=== PATIENT | female | born 1940 | race Caucasian/White ===

== ENCOUNTER 2021-01-16 07:58 | Outpatient (REF) | payer MEDICARE, OTHER, SELFPAY ==
[2021-01-16 08:29] LABS: MANUAL DIFF FLAG NO
[2021-01-16 08:35] LABS: Basophils Absolute Auto 0.1 X10*3/uL (0.0-0.2); Basophils Percent Auto 0.6 % (0-2); Eosinophils Absolute Auto 0.3 X10*3/uL (0.0-0.4); Eosinophils Percent Auto 3.3 % (0-4); Hemoglobin 15.1 g/dl (12.0-16.0); Imm Gran Abs Auto 0.03 X10*3/uL (0.00-0.03); Imm Gran Pct Auto 0.4 % (0.0-0.4); Lymphocytes Absolute Auto 2.1 X10*3/uL (1.2-4.9); Lymphocytes Percent Auto 26.7 % (20-40); Mean Corpuscular HGB Conc 33.6 g/dl (31.0-35.0); Mean Corpuscular Hemoglobin 30.8 pg (27.0-33.0); Mean Corpuscular Volume 91.6 fL (80-98); Mean Platelet Volume 10.4 fL (9.4-12.3); Monocytes Absolute Auto 0.6 X10*3/uL (0.1-1.2); Monocytes Percent Auto 7.7 % (2-11); Neutrophils Absolute Auto 4.8 X10*3/uL (2.0-8.3); Neutrophils Percent Auto 61.3 % (45-73); Platelet Count 226 X10*3/uL (160-400); Red Blood Count 4.91 X10*6/uL (4.20-5.50); Red Cell Distribution Width 13.5 % (11.0-16.0); White Blood Count 7.8 X10*3/uL (4.8-10.8)
[2021-01-16 09:00] LABS: Alanine Aminotransferase 12 U/L (0-31); Albumin Level 4.2 g/dL (3.5-5.0); Alkaline Phosphatase 77 U/L (39-117); Anion Gap 12 (12-20); Aspartate Amino Transferase 13 U/L (5-31); Bilirubin Total 1.1 mg/dL (0.0-1.0); Blood Urea Nitrogen 11 mg/dL (9-16); Calcium 9.2 mg/dL (8.4-10.2); Carbon Dioxide 27 mmol/L (22-29); Chloride 109 mmol/L (96-108); Cholesterol 277 mg/dL; Estimated Glomerular Filt Rate > 60; Glucose Fasting 116 mg/dL (60-99); HDL Cholesterol 46 mg/dL; LDL Cholesterol Calculated 192 mg/dl; Sodium 143 mmol/L (135-145); Total Protein 6.6 g/dL (6.5-8.0); Triglycerides 199 mg/dL
== END 2021-01-16 07:59 | disposition home or self-care (01) ==
LOC: HO.LAB 07:58
PROVIDERS: PCP Internal Medicine Medical Oncology; Visit Provider Internal Medicine Medical Oncology
DX: E66.3 Overweight (principal); E78.5 Hyperlipidemia, unspecified
CPT/HCPCS: 36415; 80053; 80061; 85025

== ENCOUNTER 2021-04-25 11:04 | Outpatient (REF) | payer MEDICARE, OTHER, SELFPAY ==
[2021-04-25 11:15] LABS: MANUAL DIFF FLAG NO
[2021-04-25 11:44] LABS: Basophils Percent Auto 0.5 % (0-2); Eosinophils Absolute Auto 0.2 X10*3/uL (0.0-0.4); Eosinophils Percent Auto 2.8 % (0-4); Hematocrit 46.6 % (37.0-47.0); Hemoglobin 15.6 g/dl (12.0-16.0); Imm Gran Abs Auto 0.03 X10*3/uL (0.00-0.03); Imm Gran Pct Auto 0.4 % (0.0-0.4); Lymphocytes Absolute Auto 1.4 X10*3/uL (1.2-4.9); Lymphocytes Percent Auto 17.7 % (20-40); Mean Corpuscular HGB Conc 33.5 g/dl (31.0-35.0); Mean Corpuscular Hemoglobin 30.6 pg (27.0-33.0); Mean Corpuscular Volume 91.6 fL (80.0-98.0); Mean Platelet Volume 10.8 fL (9.4-12.3); Monocytes Absolute Auto 0.6 X10*3/uL (0.1-1.2); Monocytes Percent Auto 7.4 % (2-11); Neutrophils Absolute Auto 5.55 x10*3/uL (2.0-8.3); Neutrophils Percent Auto 71.2 % (45-73); Platelet Count 270 X10*3/uL (160-400); Red Blood Count 5.09 X10*6/uL (4.20-5.50); Red Cell Distribution Width 13.2 % (11.0-16.0); White Blood Count 7.8 X10*3/uL (4.8-10.8)
[2021-04-25 12:16] LABS: Alanine Aminotransferase 14 U/L (0-31); Albumin Level 4.4 g/dL (3.5-5.0); Alkaline Phosphatase 92 U/L (39-117); Anion Gap 13 (12-20); Aspartate Amino Transferase 16 U/L (5-31); Bilirubin Total 1.7 mg/dL (0.0-1.0); Blood Urea Nitrogen 13 mg/dL (9-16); Calcium 9.5 mg/dL (8.4-10.2); Carbon Dioxide 27 mmol/L (22-29); Chloride 107 mmol/L (96-108); Cholesterol 250 mg/dL; Estimated Glomerular Filt Rate 55; Glucose Fasting 113 mg/dL (60-99); HDL Cholesterol 42 mg/dL; LDL Cholesterol Calculated 179 mg/dl; Potassium 4.9 mmol/L (3.3-5.1); Sodium 142 mmol/L (135-145); Total Protein 6.8 g/dL (6.5-8.0); Triglycerides 149 mg/dL
== END 2021-04-25 11:05 | disposition home or self-care (01) ==
LOC: HO.LAB 11:04
PROVIDERS: PCP Internal Medicine Medical Oncology; Visit Provider Internal Medicine Medical Oncology
DX: E78.5 Hyperlipidemia, unspecified (principal); E66.9 Obesity, unspecified; I10 Essential (primary) hypertension
CPT/HCPCS: 36415; 80053; 80061; 85025

== ENCOUNTER 2021-09-30 08:59 | Outpatient (REF) | payer MEDICARE, OTHER, SELFPAY ==
[2021-09-30 10:27] LABS: Alanine Aminotransferase 15 U/L (0-31); Albumin Level 4.1 g/dL (3.5-5.0); Alkaline Phosphatase 85 U/L (39-117); Anion Gap 12 (12-20); Aspartate Amino Transferase 15 U/L (5-31); Bilirubin Total 1.1 mg/dL (0.0-1.0); Blood Urea Nitrogen 10 mg/dL (9-16); Calcium 9.2 mg/dL (8.4-10.2); Carbon Dioxide 27 mmol/L (22-29); Chloride 108 mmol/L (96-108); Cholesterol 257 mg/dL; Estimated Glomerular Filt Rate > 60; Glucose Fasting 103 mg/dL (60-99); HDL Cholesterol 41 mg/dL; LDL Cholesterol Calculated 177 mg/dl; Potassium 4.4 mmol/L (3.3-5.1); Sodium 143 mmol/L (135-145); Total Protein 6.5 g/dL (6.5-8.0); Triglycerides 196 mg/dL
== END 2021-09-30 09:00 | disposition home or self-care (01) ==
LOC: HO.LAB 08:59
PROVIDERS: PCP Internal Medicine Medical Oncology; Visit Provider Internal Medicine Medical Oncology
DX: E78.5 Hyperlipidemia, unspecified (principal)
CPT/HCPCS: 36415; 80053; 80061

== ENCOUNTER 2022-03-26 10:21 | Outpatient (REF) | payer MEDICARE, OTHER, SELFPAY ==
[2022-03-26 11:00] LABS: MANUAL DIFF FLAG NO
[2022-03-26 11:43] LABS: Basophils Percent Auto 0.6 % (0-2); Eosinophils Absolute Auto 0.2 X10*3/uL (0.0-0.4); Eosinophils Percent Auto 2.5 % (0-4); Hematocrit 46.8 % (37.0-47.0); Hemoglobin 15.6 g/dl (12.0-16.0); Imm Gran Abs Auto 0.03 X10*3/uL (0.00-0.03); Imm Gran Pct Auto 0.4 % (0.0-0.4); Lymphocytes Absolute Auto 1.4 X10*3/uL (1.2-4.9); Lymphocytes Percent Auto 20.8 % (20-40); Mean Corpuscular HGB Conc 33.3 g/dl (31.0-35.0); Mean Corpuscular Hemoglobin 30.7 pg (27.0-33.0); Mean Corpuscular Volume 92.1 fL (80.0-98.0); Mean Platelet Volume 10.6 fL (9.4-12.3); Monocytes Absolute Auto 0.5 X10*3/uL (0.1-1.2); Monocytes Percent Auto 7.5 % (2-11); Neutrophils Absolute Auto 4.5 x10*3/uL (2.0-8.3); Neutrophils Percent Auto 68.2 % (45-73); Platelet Count 251 X10*3/uL (160-400); Red Blood Count 5.08 X10*6/uL (4.20-5.50); Red Cell Distribution Width 13.4 % (11.0-16.0); White Blood Count 6.7 X10*3/uL (4.8-10.8)
[2022-03-26 12:15] LABS: Alanine Aminotransferase 13 U/L (0-31); Albumin Level 4.4 g/dL (3.5-5.0); Alkaline Phosphatase 84 U/L (39-117); Anion Gap 14 (12-20); Aspartate Amino Transferase 15 U/L (5-31); Bilirubin Total 1.3 mg/dL (0.0-1.0); Blood Urea Nitrogen 12 mg/dL (9-16); Calcium 9.8 mg/dL (8.4-10.2); Carbon Dioxide 27 mmol/L (22-29); Chloride 105 mmol/L (96-108); Cholesterol 280 mg/dL; Estimated Glomerular Filt Rate > 60; Glucose Fasting 102 mg/dL (60-99); HDL Cholesterol 47 mg/dL; LDL Cholesterol Calculated 200 mg/dl; Potassium 4.7 mmol/L (3.3-5.1); Sodium 141 mmol/L (135-145); Total Protein 6.8 g/dL (6.5-8.0); Triglycerides 166 mg/dL
== END 2022-03-26 10:22 | disposition home or self-care (01) ==
LOC: HO.LAB 10:21
PROVIDERS: PCP Internal Medicine Medical Oncology; Visit Provider Internal Medicine Medical Oncology
DX: E78.5 Hyperlipidemia, unspecified (principal); E66.3 Overweight
CPT/HCPCS: 36415; 80053; 80061; 85025

== ENCOUNTER 2022-04-25 10:15 | Outpatient (REF) | payer MEDICARE, OTHER, SELFPAY ==
[2022-04-25 11:17] LABS: Alanine Aminotransferase 12 U/L (0-31); Albumin Level 4.2 g/dL (3.5-5.0); Alkaline Phosphatase 93 U/L (39-117); Anion Gap 13 (12-20); Aspartate Amino Transferase 16 U/L (5-31); Bilirubin Total 1.5 mg/dL (0.0-1.0); Blood Urea Nitrogen 10 mg/dL (9-16); Calcium 9.3 mg/dL (8.4-10.2); Carbon Dioxide 28 mmol/L (22-29); Chloride 107 mmol/L (96-108); Cholesterol 255 mg/dL; Estimated Glomerular Filt Rate > 60; Glucose Fasting 105 mg/dL (60-99); HDL Cholesterol 44 mg/dL; LDL Cholesterol Calculated 181 mg/dl; Potassium 4.5 mmol/L (3.3-5.1); Sodium 143 mmol/L (135-145); Total Protein 6.6 g/dL (6.5-8.0); Triglycerides 153 mg/dL
== END 2022-04-25 10:16 | disposition home or self-care (01) ==
LOC: HO.LAB 10:15
PROVIDERS: PCP Internal Medicine Medical Oncology; Visit Provider Internal Medicine Medical Oncology
DX: E78.5 Hyperlipidemia, unspecified (principal); E66.3 Overweight
CPT/HCPCS: 36415; 80053; 80061

== ENCOUNTER 2022-09-24 08:22 | Outpatient (REF) | payer MEDICARE, OTHER, SELFPAY ==
[2022-09-24 08:39] LABS: MANUAL DIFF FLAG NO
[2022-09-24 09:04] LABS: Basophils Percent Auto 0.6 % (0-2); Eosinophils Absolute Auto 0.2 X10*3/uL (0.0-0.4); Hematocrit 44.8 % (37.0-47.0); Hemoglobin 15.1 g/dl (12.0-16.0); Imm Gran Abs Auto 0.01 X10*3/uL (0.00-0.03); Imm Gran Pct Auto 0.2 % (0.0-0.4); Lymphocytes Absolute Auto 1.4 X10*3/uL (1.2-4.9); Lymphocytes Percent Auto 25.3 % (20-40); Mean Corpuscular HGB Conc 33.7 g/dl (31.0-35.0); Mean Corpuscular Hemoglobin 30.3 pg (27.0-33.0); Mean Corpuscular Volume 89.8 fL (80.0-98.0); Mean Platelet Volume 10.4 fL (9.4-12.3); Monocytes Absolute Auto 0.4 X10*3/uL (0.1-1.2); Monocytes Percent Auto 6.9 % (2-11); Neutrophils Absolute Auto 3.4 x10*3/uL (2.0-8.3); Platelet Count 218 X10*3/uL (160-400); Red Blood Count 4.99 X10*6/uL (4.20-5.50); Red Cell Distribution Width 12.7 % (11.0-16.0); White Blood Count 5.3 X10*3/uL (4.8-10.8)
[2022-09-24 09:59] LABS: Alanine Aminotransferase 11 U/L (0-31); Albumin Level 3.9 g/dL (3.5-5.0); Alkaline Phosphatase 80 U/L (39-117); Anion Gap 11 (12-20); Aspartate Amino Transferase 14 U/L (5-31); Bilirubin Total 1.4 mg/dL (0.0-1.0); Blood Urea Nitrogen 10 mg/dL (9-16); Calcium 9.1 mg/dL (8.4-10.2); Carbon Dioxide 27 mmol/L (22-29); Chloride 111 mmol/L (96-108); Cholesterol 263 mg/dL; Estimated Glomerular Filt Rate > 60; Glucose Fasting 109 mg/dL (60-99); HDL Cholesterol 43 mg/dL; LDL Cholesterol Calculated 192 mg/dl; Potassium 4.9 mmol/L (3.3-5.1); Sodium 144 mmol/L (135-145); Total Protein 6.1 g/dL (6.5-8.0); Triglycerides 144 mg/dL
[2022-09-24 10:04] LABS: Vitamin D 25-OH Total 6.8 ng/mL (>30)
== END 2022-09-24 08:23 | disposition home or self-care (01) ==
LOC: HO.LAB 08:22
PROVIDERS: PCP Internal Medicine Medical Oncology; Visit Provider Internal Medicine Medical Oncology
DX: E78.5 Hyperlipidemia, unspecified (principal); E66.3 Overweight; E55.9 Vitamin D deficiency, unspecified
CPT/HCPCS: 36415; 80053; 80061; 82306; 85025

== ENCOUNTER 2022-12-24 09:08 | Outpatient (REF) | payer MEDICARE, OTHER, SELFPAY | END 2022-12-24 09:09 | disposition home or self-care (01) | LOC: HO.LAB 09:08 | PROVIDERS: PCP Internal Medicine Medical Oncology; Visit Provider Internal Medicine Medical Oncology | DX: E78.5 Hyperlipidemia, unspecified (principal); E66.3 Overweight; E55.9 Vitamin D deficiency, unspecified; I10 Essential (primary) hypertension | CPT/HCPCS: 36415; 80053; 80061; 82306; 85025 ==

== ENCOUNTER 2023-01-30 08:38 | Outpatient (REF) | payer MEDICARE, OTHER, SELFPAY ==
[2023-01-30 10:31] LABS: Appearance Urine Cloudy; Color Urine Yellow; Glucose Urine UA Negative (Negative); Leukocyte Esterase Urine Small (1+) (Negative); Nitrite Urine Negative (Negative); PH 6.5 (5.0-9.0); Specific Gravity - Urine 1.015 (1.005-1.025); UMIC TRIGGER UA YES; Urine Blood Negative (Negative); Urine Ketones Negative (Negative); Urine Protein Negative (Neg-Trace)
[2023-01-30 10:34] LABS: Bacteria Urine 1+ (None Seen); Hyaline Casts Urine 0-2 /LPF (0-2); RBC Urine 0-2 /HPF (0-2); Squamous Epithelial Cell Urine >20 /HPF (0-2)
== END 2023-01-30 08:39 | disposition home or self-care (01) ==
LOC: HO.LAB 08:38
PROVIDERS: PCP Internal Medicine Medical Oncology; Visit Provider Internal Medicine Medical Oncology
DX: R82.998 Other abnormal findings in urine (principal)
CPT/HCPCS: 81001; 87086

== ENCOUNTER 2023-06-26 09:49 | Outpatient (REF) | payer MEDICARE, OTHER, SELFPAY | END 2023-06-26 09:50 | disposition home or self-care (01) | LOC: HO.LAB 09:49 | PROVIDERS: PCP Internal Medicine Medical Oncology; Visit Provider Internal Medicine Medical Oncology | DX: Z00.00 Encounter for general adult medical examination without abnormal findings (principal); E78.5 Hyperlipidemia, unspecified; I10 Essential (primary) hypertension; E66.3 Overweight; E55.9 Vitamin D deficiency, unspecified | CPT/HCPCS: 36415; 80053; 80061; 82306; 85025 ==

== ENCOUNTER 2023-09-14 15:23 | Emergency (ER) | payer MEDICARE, OTHER, SELFPAY ==
[2023-09-14] VITALS (8 sets, daily range): BP systolic 132–172; BP diastolic 74–105; PULSE 52–91; RESP 16–18; TEMP 36.6–37; O2SAT 95–99; BMI 25.8
--- NOTE | ~2023-09-14 | CT_ITS ---
EXAMINATION: CT HEAD WITHOUT CONTRAST CLINICAL INFORMATION: Dizziness COMPARISON: None available. TECHNIQUE: Contiguous axial imaging was performed from the skull base to vertex without intravenous administration of contrast. This CT examination was performed using dose optimization techniques as appropriate, variously including the following: *Automated exposure control *Adjustment of mA and/or kV according to patient size (this includes techniques or standardized protocols for targeted exams where dose is matched to indication/reason for exam; i.e. extremities or head) *Use of iterative reconstruction technique DLP: 629 mGy-cm FINDINGS: There is no acute intra-axial, extra-axial bleed, masses or midline shift. There is no acute infarction in evolution. There is no edema. The lateral ventricles are symmetrical in size and configuration without enlargement. Bone windows reveal no calvarial abnormality. Bilateral paranasal sinuses and mastoid air cells are well-aerated. There is no scalp soft tissue abnormality. CT/CT head/brain wo IV con IMPRESSION: No acute intracranial process seen.
--- NOTE | 2023-09-14 15:33 | ECG_ITS ---
Test Reason : DIZZINESS Blood Pressure : / mmHG Vent. Rate : 063 BPM Atrial Rate : 063 BPM P-R Int : 156 ms QRS Dur : 082 ms QT Int : 484 ms P-R-T Axes : 043 -16 029 degrees QTc Int : 495 ms Normal sinus rhythm Minimal voltage criteria for LVH, may be normal variant ( R in aVL ) Prolonged QT Abnormal ECG No previous ECGs available Referred By: Silvina Alves Electronically Signed By:AUDRA APARICIO
[2023-09-14 16:19] LABS: MANUAL DIFF FLAG NO
[2023-09-14 16:21] LABS: Basophils Percent Auto 0.4 % (0-2); Eosinophils Percent Auto 0.4 % (0-4); Hematocrit 44.2 % (37.0-47.0); Hemoglobin 15.4 g/dl (12.0-16.0); Imm Gran Abs Auto 0.02 X10*3/uL (0.00-0.03); Imm Gran Pct Auto 0.3 % (0.0-0.4); Lymphocytes Absolute Auto 0.8 X10*3/uL (1.2-4.9); Lymphocytes Percent Auto 9.6 % (20-40); Mean Corpuscular HGB Conc 34.8 g/dl (31.0-35.0); Mean Corpuscular Volume 86.2 fL (80.0-98.0); Mean Platelet Volume 10.1 fL (9.4-12.3); Monocytes Absolute Auto 0.3 X10*3/uL (0.1-1.2); Monocytes Percent Auto 3.6 % (2-11); Neutrophils Absolute Auto 6.7 x10*3/uL (2.0-8.3); Neutrophils Percent Auto 85.7 % (45-73); Platelet Count 206 X10*3/uL (160-400); Red Blood Count 5.13 X10*6/uL (4.20-5.50); Red Cell Distribution Width 12.7 % (11.0-16.0); White Blood Count 7.8 X10*3/uL (4.8-10.8)
[2023-09-14 16:27] LABS: Prothrombin Time 11.9 SEC (11.1-13.3)
[2023-09-14 16:29] LABS: Partial Thromboplastin Time 32.8 SEC (26.0-36.8)
[2023-09-14 16:34] LABS: Alanine Aminotransferase 10 U/L (0-31); Albumin Level 3.9 g/dL (3.5-5.0); Alkaline Phosphatase 88 U/L (39-117); Anion Gap 16 (12-20); Aspartate Amino Transferase 14 U/L (5-31); Bilirubin Total 1.3 mg/dL (0.0-1.0); Blood Urea Nitrogen 10 mg/dL (9-16); Calcium 9.1 mg/dL (8.4-10.2); Carbon Dioxide 21 mmol/L (22-29); Chloride 108 mmol/L (96-108); Creatinine Clr Calc Pharmacy 55.9; Estimated Glomerular Filt Rate > 60; Glucose Random 155 mg/dL (60-115); Magnesium 1.9 mg/dL (1.6-2.6); Potassium 3.9 mmol/L (3.3-5.1); Sodium 141 mmol/L (135-145); Total Protein 6.6 g/dL (6.5-8.0)
[2023-09-14 16:42] LABS: Troponin-I High Sensitivity < 2.7 ng/L (<3.5-17.0)
--- NOTE | 2023-09-14 16:53 | ED.GENADULT ---
HPI - General Adult General Chief complaint: Nausea/Vomiting/Diarrhea Stated complaint: vomiting, weakness Time Seen by Provider: 09/14/23 16:03 Source: patient and RN notes reviewed Mode of arrival: ambulatory Limitations: no limitations History of Present Illness [facility] narrative: This is a 83-year-old female, with no known medical problems, presenting to the emergency department with complaints of acute onset dizziness which started at 6:00 a.m. this morning. Patient states that she woke up this morning and felt like she was dizzy and went to the bathroom return back to bed. She states that she still has profound dizziness especially when she is moving around. She states that she was unable to ambulate today secondary to the dizziness she was experiencing. She reports a slight headache, nausea and vomiting. She states that over the last 2 days she felt as though she did not want to leave her house, however states that she was in her usual state of health. No recent fevers, chills, chest pain, shortness of breath, palpitations, abdominal pain, nausea, vomiting or diarrhea. She denies history of similar symptoms in the past. Denies any other complaints or concerns at this time. MD complaint: Dizziness Onset (ago): hour(s) Radiation: non-radiation Relieving factors: none Exacerbating factors: none Associated symptoms: denies other symptoms Treatments prior to arrival: none Related Data Allergies Allergy/AdvReac Type Severity Reaction Status Date / Time No Known Allergies Allergy Unverified 03/10/20 17:14 Review of Systems Review of Systems: Yes all other systems are reviewed and are negative Constitutional: Constitutional: Reports as per [facility] Past Medical History Attestation statement: The following information was validated with the patient. Social History Social History Alcohol intake: former Smoked in Last 30 Days: No Use of substances other than those prescribed or required for medical reasons: No Advance Directives: No Advance Directives Information Provided: No Physical Exam ED Vital Signs: Vital Signs - 24 hr 09/14/23 17:32 09/14/23 17:35 09/14/23 17:37 Temperature 98.6 F Pulse Rate 52 56 55 Respiratory Rate 18 Blood Pressure 155/74 H 150/78 H 147/77 H Pulse Oximetry 99 Oxygen Delivery Method Room Air 09/14/23 17:39 09/14/23 18:04 09/14/23 22:59 Temperature 98 F Pulse Rate 63 56 91 Respiratory Rate 18 16 Blood Pressure 159/88 H 159/88 H 172/105 H Pulse Oximetry 97 95 Oxygen Delivery Method Room Air Room Air 09/14/23 23:07 Temperature 98.0 F Pulse Rate 91 Respiratory Rate 16 Blood Pressure 172/105 H Pulse Oximetry 95 Oxygen Delivery Method Room Air BMI result Body Mass Index 25.8 Const General: cooperative, comfortable and no acute distress Orientation/consciousness: patient oriented x3 Limitations: no limitations HENMT Head: Yes normal to inspection, Yes normocephalic and Yes atraumatic Ears: hearing grossly normal bilaterally General nose exam: Normal external nose present Face and sinus: Yes normal facial exam Mouth: Normal oral and palatal mucosa present, oropharynx normal and moist mucous membranes Throat: Yes posterior oropharynx normal Eyes General: appearance normal, both eyes and all related structures Eyelids: Yes eyelids normal Conjunctivae: conjunctivae normal Sclerae: sclerae normal Pupils: Equal, round and reactive pupils present EOM: EOMs intact bilaterally Neck Neck: Yes normal visual inspection, Yes full ROM and Yes no lymphadenopathy Lymphatic: no lymphadenopathy noted Chest Chest palpation & inspection: normal inspection of the chest Resp Effort & Inspection: normal respiratory effort and able to speak in complete sentences Auscultation: clear to auscultation bilaterally, no crackles, no rales, no rhonchi and no wheezes Cardio Rate: regular rate Rhythm: regular rhythm Heart sounds: S1 normal heart sound present and S2 normal heart sound present GI Other: Abdomen is soft, nontender, nondistended Inspection: Yes normal to inspection Skin General skin exam: no rashes or lesions noted Trauma: no lacerations or abrasions Wounds: no wounds Neuro Other: Unable to perform pronator drift as every time she closes her eyes dizziness worsens. General: patient oriented x3 and moves all extremities Cranial nerves: Yes CN's II-XII intact bilaterally and Yes Equal, round and reactive pupils present Cognition (Neuro): normal cognition Gait exam (Neuro): Normal gait present Motor exam (neuro): 5/5 motor strength present throughout Extrem General: Yes normal to inspection Right upper extremity: normal to inspection Left upper extremity: normal to inspection Right lower extremity: normal to inspection Left lower extremity: normal to inspection NIH Stroke Scale Internal: Initial- Upon Arrival Level of Consciousness: Alert Level of Consciousness Questions: Answers both questions correctly Level of Consciousness Commands: Performs both tasks correctly Best Gaze: Normal Visual: No visual loss Facial Palsy: Normal Motor Arm (Right): No drift Motor Arm (Left): No drift Motor Leg (Right): No drift Motor Leg (Left): No drift Limb Ataxia: Absent Sensory: Normal Best Language: No aphasia Dysarthia: Normal Extinction and Inattention: No abnormality Score: 0 Course Reevaluation(s) Reevaluation #1: Patient is not orthostatic. CT head unremarkable. Discussed case with Dr. Hunter. Given symptomatic, will medicate with IV fluids, p.o. valiumand meclizine. Time: 17:55 Reevaluation #2: Patient re-evaluated after receiving IV fluids and medications. She was able to walk to the bathroom without difficulty. She is feeling better, will attempt to ambulate around the emergency room to ensure that her symptoms have resolved. Time: 21:09 Reevaluation #3: Patient has walked around the emergency room multiple times, without any return of dizziness. She is feeling much better and stable for discharge. Given strict return precautions. She understands and agrees with plan. Patient stable for discharge. Time: 22:44 Medications Administered Discontinued Medications Generic Name Dose Route Start Last Admin Trade Name Freq PRN Reason Stop Dose Admin Diazepam 1 mg 09/14/23 17:52 09/14/23 18:05 Diazepam 2 Mg Tablet PO 09/14/23 17:53 1 mg ONCE ONE Administration Sodium Chloride 1,000 mls @ 999 mls/hr 09/14/23 17:50 09/14/23 18:08 Ns IV 09/14/23 18:50 999 mls/hr .Q1H1M ONE Administration Meclizine HCl 50 mg 09/14/23 17:54 09/14/23 18:05 Meclizine Hcl 25 Mg Tablet PO 09/14/23 17:55 50 mg ONCE ONE Administration Medical Decision Making Medical Decision Making MDM Narrative: This is a 83-year-old female, with no known medical problems, presenting to the emergency department with complaints of dizziness which started this morning. On arrival, patient alert and oriented x4. She is neurologically intact however unable to perform pronator drift given keeping her eyes closed causes her to have worsening dizziness, no other neurologic focal deficits seen on examination. Denies any recent head trauma or head strike. She has not on blood thinners. Plan: Labs, EKG, viral swabs, CT head, orthostatics Differential Diagnosis Differential Diagnoses: The differential diagnosis associated with the presentation includes Orthostatic hypotension, ICH, subdural hematoma, CVA, electrolyte abnormality, ACS, arrhythmia Admission/Observation Consideration of admission/observation: Escalation of care including admission/observation considered Patient would have been admitted to the hospital had her work up had any findings where hospital admission was appropriate and her clinical presentation warranted hospital admission. Lab Data MDM Lab Attestation statement: I reviewed the patient's lab results. No leukocytosis, stable H&H, chemistry within normal limits. 09/14/23 16:15 09/14/23 16:15 Labs: Lab Results 09/14/23 09/14/23 Range/Units 16:14 16:15 WBC 7.8 (4.8-10.8) X10*3/uL RBC 5.13 (4.20-5.50) X10*6/uL Hgb 15.4 (12.0-16.0) g/dl Hct 44.2 (37.0-47.0) % MCV 86.2 (80.0-98.0) fL MCH 30.0 (27.0-33.0) pg MCHC 34.8 (31.0-35.0) g/dl RDW 12.7 (11.0-16.0) % Plt Count 206 (160-400) X10*3/uL MPV 10.1 (9.4-12.3) fL Immature Gran % (Auto) 0.3 (0.0-0.4) % Neut % (Auto) 85.7 H (45-73) % Lymph % (Auto) 9.6 L (20-40) % Hartley % (Auto) 3.6 (2-11) % Eos % (Auto) 0.4 (0-4) % Baso % (Auto) 0.4 (0-2) % Lymph # (Auto) 0.8 L (1.2-4.9) X10*3/uL Hartley # (Auto) 0.3 (0.1-1.2) X10*3/uL Eos # (Auto) 0.0 (0.0-0.4) X10*3/uL Baso # (Auto) 0.0 (0.0-0.2) X10*3/uL Abs Immat Gran (auto) 0.02 (0.00-0.03) X10*3/uL Absolute Neuts (auto) 6.7 (2.0-8.3) x10*3/uL Absolute Nucleated RBC 0.000 (0.0-0.012) X10*3/uL Nucleated RBC % (auto) 0.0 (0.0-0.2) /100WBC PT 11.9 (11.1-13.3) SEC INR 1.0 (0.9-1.1) APTT 32.8 (26.0-36.8) SEC Sodium 141 (135-145) mmol/L Potassium 3.9 (3.3-5.1) mmol/L Chloride 108 (96-108) mmol/L Carbon Dioxide 21 L (22-29) mmol/L Anion Gap 16 (12-20) BUN 10 (9-16) mg/dL Creatinine 0.79 (0.5-1.4) mg/dL Estim Creat Clear Calc 55.9 Estimated GFR > 60 Random Glucose 155 H (60-115) mg/dL Calcium 9.1 (8.4-10.2) mg/dL Magnesium 1.9 (1.6-2.6) mg/dL Total Bilirubin 1.3 H (0.0-1.0) mg/dL AST 14 (5-31) U/L ALT 10 (0-31) U/L Alkaline Phosphatase 88 (39-117) U/L Troponin I High Sens < 2.7 (<3.5-17.0) ng/L Total Protein 6.6 (6.5-8.0) g/dL Albumin 3.9 (3.5-5.0) g/dL Influenza Type A (PCR) NEGATIVE (Negative) Influenza Type B (PCR) NEGATIVE (Negative) RSV RNA Qual (PCR) NEGATIVE (Negative) SARS-CoV-2 RNA (RT-PCR) NEGATIVE (Negative) Independent Interpretation I performed an independent interpretation of an: EKG Interpretation: EKG normal sinus rhythm at a ventricular rate of 63 beats per minute, prolonged QT at 484, QTC 495, no ST elevation or depression. Radiology Impression Discussion of test interpretation with radiology: I have reviewed the radiologist's reading. Radiologist Impression: EXAMINATION: CT HEAD WITHOUT CONTRAST CLINICAL INFORMATION: Dizziness COMPARISON: None available. TECHNIQUE: Contiguous axial imaging was performed from the skull base to vertex without intravenous administration of contrast. This CT examination was performed using dose optimization techniques as appropriate, variously including the following: *Automated exposure control *Adjustment of mA and/or kV according to patient size (this includes techniques or standardized protocols for targeted exams where dose is matched to indication/reason for exam; i.e. extremities or head) *Use of iterative reconstruction technique DLP: 629 mGy-cm FINDINGS: There is no acute intra-axial, extra-axial bleed, masses or midline shift. There is no acute infarction in evolution. There is no edema. The lateral ventricles are symmetrical in size and configuration without enlargement. Bone windows reveal no calvarial abnormality. Bilateral paranasal sinuses and mastoid air cells are well-aerated. There is no scalp soft tissue abnormality. CT/CT head/brain wo IV con IMPRESSION: No acute intracranial process seen. Dictated By: Robert Griffiths MD Discharge Plan Discharge Clinical Impression: Vertigo, Dizziness Patient Disposition: Home, Self-Care Instructions: Vertigo (ED), Dizziness (ED) Additional Instructions: You were seen in the emergency department due to dizziness. Your CT of your head does not show any abnormalities. Your blood work was reassuring. It is unclear what is causing you to feel dizzy however, we gave you multiple medications including IV fluids, and your symptoms had resolved. Please follow-up with your primary care physician regarding this visit. If any new or worsening symptoms occur including but not limited to chest pain, shortness of breath, worsening dizziness, headaches, blurred vision, please return for re-evaluation. Interventions: ED Discharge Assessment Last Done: 09/14/23 23:07 Discharge Date/Time: 09/14/23 23:08
[2023-09-14 16:59] LABS: Influenza A PCR NEGATIVE (Negative); Influenza B PCR NEGATIVE (Negative); Resp Syncy Virus RNA Qual PCR NEGATIVE (Negative); SARS COV2 PCR INHOUSE NEGATIVE (Negative)
[2023-09-14] MEDS: Meclizine HCl 25 MG TABLET 50 MG PO (18:05)
[2023-09-14] MEDS: diazePAM 2 MG TABLET 1 MG PO (18:05)
[2023-09-14] MEDS: 0.9 % Sodium Chloride 1,000 ML 999 ML IV (18:08)
--- NOTE | 2023-09-14 23:05 | PC.NURSE ---
pt ambulatory at discharge pt son arrived for transport home. pt provided with discharge packet nahun morris made aware of pts bp of 172/105 pt denies cp, sob per alexandra pt safe for discharge
== END 2023-09-14 23:08 | disposition home or self-care (01) ==
PROVIDERS: Physician Assistant Medical; Emergency Provider Emergency Medicine; PCP Internal Medicine Medical Oncology
DX: R11.2 Nausea with vomiting, unspecified (principal); R42 Dizziness and giddiness; R26.2 Difficulty in walking, not elsewhere classified; R51.9 Headache, unspecified; R94.31 Abnormal electrocardiogram [ECG] [EKG]; Z11.52 Encounter for screening for COVID-19; Z20.822 Contact with and (suspected) exposure to COVID-19; Z79.899 Other long term (current) drug therapy
CPT/HCPCS: 0241U; 70450; 80053; 83735; 84484; 85025; 85610; 85730; 93005; 99284; 99285

== ENCOUNTER → 2023-09-14 15:33 | Outpatient (BNV) | payer MEDICARE, OTHER, SELFPAY | PROVIDERS: Emergency Provider Emergency Medicine; Visit Provider Internal Medicine | DX: I45.81 Long QT syndrome (principal) | CPT/HCPCS: 93010 ==

== ENCOUNTER 2023-11-07 10:27 | Outpatient (REF) | payer MEDICARE, OTHER, SELFPAY ==
[2023-11-07 10:38] LABS: MANUAL DIFF FLAG NO
[2023-11-07 10:50] LABS: Basophils Absolute Auto 0.1 X10*3/uL (0.0-0.2); Basophils Percent Auto 0.7 % (0-2); Eosinophils Absolute Auto 0.2 X10*3/uL (0.0-0.4); Eosinophils Percent Auto 1.8 % (0-4); Hematocrit 43.4 % (37.0-47.0); Hemoglobin 14.5 g/dl (12.0-16.0); Imm Gran Abs Auto 0.04 X10*3/uL (0.00-0.03); Imm Gran Pct Auto 0.5 % (0.0-0.4); Lymphocytes Absolute Auto 1.9 X10*3/uL (1.2-4.9); Lymphocytes Percent Auto 22.9 % (20-40); Mean Corpuscular HGB Conc 33.4 g/dl (31.0-35.0); Mean Corpuscular Hemoglobin 29.9 pg (27.0-33.0); Mean Corpuscular Volume 89.5 fL (80.0-98.0); Mean Platelet Volume 9.9 fL (9.4-12.3); Monocytes Absolute Auto 0.6 X10*3/uL (0.1-1.2); Monocytes Percent Auto 6.8 % (2-11); Neutrophils Absolute Auto 5.6 x10*3/uL (2.0-8.3); Neutrophils Percent Auto 67.3 % (45-73); Platelet Count 313 X10*3/uL (160-400); Red Blood Count 4.85 X10*6/uL (4.20-5.50); Red Cell Distribution Width 13.1 % (11.0-16.0); White Blood Count 8.3 X10*3/uL (4.8-10.8)
[2023-11-07 11:18] LABS: Alanine Aminotransferase 9 U/L (0-31); Alkaline Phosphatase 88 U/L (39-117); Anion Gap 10 (12-20); Aspartate Amino Transferase 12 U/L (5-31); Bilirubin Total 1.2 mg/dL (0.0-1.0); Blood Urea Nitrogen 8 mg/dL (9-16); Calcium 9.3 mg/dL (8.4-10.2); Carbon Dioxide 30 mmol/L (22-29); Chloride 107 mmol/L (96-108); Cholesterol 246 mg/dL (<200); Estimated Glomerular Filt Rate 60; Glucose Fasting 112 mg/dL (60-99); HDL Cholesterol 43 mg/dL (>40); LDL Cholesterol Calculated 166 mg/dL (<100); Potassium 4.2 mmol/L (3.3-5.1); Sodium 143 mmol/L (135-145); Triglycerides 186 mg/dL (<150)
== END 2023-11-07 10:28 | disposition home or self-care (01) ==
LOC: HO.LAB 10:27
PROVIDERS: PCP Internal Medicine Medical Oncology; Visit Provider Internal Medicine Medical Oncology
DX: E78.5 Hyperlipidemia, unspecified (principal); E66.3 Overweight
CPT/HCPCS: 36415; 80053; 80061; 85025

== ENCOUNTER 2024-04-25 09:28 | Outpatient (REF) | payer MEDICARE, OTHER, SELFPAY ==
[2024-04-25 09:40] LABS: MANUAL DIFF FLAG NO
[2024-04-25 10:02] LABS: Basophils Percent Auto 0.6 % (0-2); Eosinophils Absolute Auto 0.2 X10*3/uL (0.0-0.4); Eosinophils Percent Auto 2.6 % (0-4); Hematocrit 43.8 % (37.0-47.0); Imm Gran Abs Auto 0.03 X10*3/uL (0.00-0.03); Imm Gran Pct Auto 0.4 % (0.0-0.4); Lymphocytes Absolute Auto 1.5 X10*3/uL (1.2-4.9); Lymphocytes Percent Auto 22.2 % (20-40); Mean Corpuscular HGB Conc 34.2 g/dl (31.0-35.0); Mean Corpuscular Hemoglobin 31.4 pg (27.0-33.0); Mean Corpuscular Volume 91.8 fL (80.0-98.0); Mean Platelet Volume 10.8 fL (9.4-12.3); Monocytes Absolute Auto 0.5 X10*3/uL (0.1-1.2); Neutrophils Absolute Auto 4.6 x10*3/uL (2.0-8.3); Neutrophils Percent Auto 67.2 % (45-73); Platelet Count 221 X10*3/uL (160-400); Red Blood Count 4.77 X10*6/uL (4.20-5.50); Red Cell Distribution Width 13.3 % (11.0-16.0); White Blood Count 6.8 X10*3/uL (4.8-10.8)
[2024-04-25 10:38] LABS: Alanine Aminotransferase 15 U/L (0-31); Alkaline Phosphatase 69 U/L (39-117); Anion Gap 13 (12-20); Aspartate Amino Transferase 19 U/L (5-31); Bilirubin Total 1.2 mg/dL (0.0-1.0); Blood Urea Nitrogen 11 mg/dL (9-16); Calcium 9.7 mg/dL (8.4-10.2); Carbon Dioxide 26 mmol/L (22-29); Chloride 109 mmol/L (96-108); Cholesterol 266 mg/dL (<200); Estimated Glomerular Filt Rate > 60; Glucose Fasting 107 mg/dL (60-99); HDL Cholesterol 50 mg/dL (>40); LDL Cholesterol Calculated 177 mg/dL (<100); Potassium 4.3 mmol/L (3.3-5.1); Sodium 144 mmol/L (135-145); Total Protein 6.6 g/dL (6.5-8.0); Triglycerides 196 mg/dL (<150)
[2024-04-25 10:53] LABS: Vitamin D 25-OH Total 33.2 ng/mL (>30)
== END 2024-04-25 09:29 | disposition home or self-care (01) ==
LOC: HO.LAB 09:28
PROVIDERS: PCP Internal Medicine Medical Oncology; Visit Provider Internal Medicine Medical Oncology
DX: I10 Essential (primary) hypertension (principal); E78.5 Hyperlipidemia, unspecified; E55.9 Vitamin D deficiency, unspecified
CPT/HCPCS: 36415; 80053; 80061; 82306; 85025

== ENCOUNTER 2024-07-24 11:16 | Outpatient (REF) | payer MEDICARE, OTHER, SELFPAY ==
[2024-07-24 11:30] LABS: MANUAL DIFF FLAG NO
[2024-07-24 11:57] LABS: Basophils Percent Auto 0.6 % (0-2); Eosinophils Absolute Auto 0.2 X10*3/uL (0.0-0.4); Eosinophils Percent Auto 2.3 % (0-4); Hematocrit 43.7 % (37.0-47.0); Hemoglobin 14.9 g/dl (12.0-16.0); Imm Gran Abs Auto 0.02 X10*3/uL (0.00-0.03); Imm Gran Pct Auto 0.3 % (0.0-0.4); Lymphocytes Absolute Auto 1.5 X10*3/uL (1.2-4.9); Lymphocytes Percent Auto 21.7 % (20-40); Mean Corpuscular HGB Conc 34.1 g/dl (31.0-35.0); Mean Corpuscular Hemoglobin 30.9 pg (27.0-33.0); Mean Corpuscular Volume 90.7 fL (80.0-98.0); Mean Platelet Volume 10.4 fL (9.4-12.3); Monocytes Absolute Auto 0.6 X10*3/uL (0.1-1.2); Monocytes Percent Auto 8.7 % (2-11); Neutrophils Absolute Auto 4.6 x10*3/uL (2.0-8.3); Neutrophils Percent Auto 66.4 % (45-73); Platelet Count 241 X10*3/uL (160-400); Red Blood Count 4.82 X10*6/uL (4.20-5.50); Red Cell Distribution Width 13.2 % (11.0-16.0); White Blood Count 6.9 X10*3/uL (4.8-10.8)
--- OUTSIDE RECORDS SUMMARY | 2024-07-24 12:04 | XMS_ITS | Clinical Summary ---
Author Organization [employer] Address [address] [place] [address] Care Team Providers Care Critical Care Cns Name Role Phone Unavailable Primary Care Provider Unavailabl e Immunizations Name Administration Dates Next Due Influenza, seasonal, injectable, preservative fr ee 03/11/2024 Social History Tobacco Use Types Packs/Day Years Used Date Smoking Tobacco: Never Assessed Comments Unknown Sex and Gender Information Value Date Recorded Sex Assigned at Female 03/12/2024 12:41 PM EDT Legal Sex Female 3:07 PM EDT Gender Identity Female 03/12/2024 12:41 PM EDT Sexual Orientation Straight 03/12/2024 12 :42 PM EDT Plan of Treatment Health Maintenance Due Date Last Done Comments Depression Screening 1941 SDOH Screening 1941 Alcohol/Substance Use Screening 1953 Tobacco Screening 1952 Zoster Vaccines (1 of 2) 1991 RSV Patients and Patients Aged 60 years or older (1 - 1-dose 75+ series) 2016 Pneumococcal Vaccine: 50+ Years (2 of 2 - PPSV23) 03/10/2019 03/10/2018, 03/24/2007 DTaP/Tdap/Td Vaccines (2 - Td or Tdap) 02/17/2023 02/17/2013 COVID-19 Vaccine ( season) 2024 04/13/2022, 06/05/2021, 08/30/2020, Additional history exists Influenza Vaccine Completed 03/11/2024, , 04/03/2022, Additional history exists HIB Vaccines Aged Out No longer eligi ble based on patient's age to complete this topic HPV Vaccines Aged Out No longer eligi ble based on patient's age to complete this topic Hepatitis A Vaccines Aged Out No long er eligible based on patient's age to complete this topic Hepatitis B Vaccines Aged Out No long er eligible based on patient's age to complete this topic IPV Vaccines Aged Out No longer eligi ble based on patient's age to complete this topic Meningococcal Vaccine Aged Out No jack yung eligible based on patient's age to complete this topic RSV under 20 months Aged Out No longe r eligible based on patient's age to complete this topic Rotavirus Vaccines Aged Out No longer eligible based on patient's age to complete this topic Insurance [place] [address] [place] [id number] [facility] MEDICARE SUPPLEMENT
[2024-07-24 12:51] LABS: Alanine Aminotransferase 12 U/L (0-31); Alkaline Phosphatase 74 U/L (39-117); Anion Gap 10 (12-20); Aspartate Amino Transferase 19 U/L (5-31); Bilirubin Total 1.2 mg/dL (0.0-1.0); Blood Urea Nitrogen 12 mg/dL (9-16); Calcium 9.5 mg/dL (8.4-10.2); Carbon Dioxide 27 mmol/L (22-29); Chloride 110 mmol/L (96-108); Cholesterol 250 mg/dL (<200); Estimated Glomerular Filt Rate > 60; Glucose Fasting 98 mg/dL (60-99); HDL Cholesterol 42 mg/dL (>40); LDL Cholesterol Calculated 177 mg/dL (<100); Potassium 4.6 mmol/L (3.3-5.1); Sodium 142 mmol/L (135-145); Total Protein 6.9 g/dL (6.5-8.0); Triglycerides 158 mg/dL (<150)
[2024-07-24 13:14] LABS: Folate 10.8 ng/mL (> or = 4.0); Vitamin B12 231 pg/mL (200-900)
== END 2024-07-24 11:17 | disposition home or self-care (01) ==
LOC: HO.LAB 11:16
PROVIDERS: Visit Provider Internal Medicine Medical Oncology
DX: E78.5 Hyperlipidemia, unspecified (principal); E66.3 Overweight; E53.9 Vitamin B deficiency, unspecified
CPT/HCPCS: 36415; 80053; 80061; 82607; 82746; 85025

== ENCOUNTER 2024-12-08 10:27 | Outpatient (REF) | payer MEDICARE, OTHER, SELFPAY ==
[2024-12-08 10:41] LABS: MANUAL DIFF FLAG NO
--- OUTSIDE RECORDS SUMMARY | 2024-12-08 12:00 | XMS_ITS | Clinical Summary ---
Author Organization [employer] Address [address] [place] [address] [address] [place] [address] Care Team Providers Care Neurophysiological Technician Name Role Phone Unavailable Primary Care Provider Unavailabl e Immunizations Immunization Administration Dates Next Due Influenza, seasonal, injectable, [...] patient's age to complete this topic Meningococcal B Vaccine Aged Out No l onger eligible based on patient's age to complete this topic Meningococcal Vaccine Aged Out No jakc yung eligible based on patient's age to complete this topic RSV under 20 months Aged Out No longe r eligible based on patient's age to complete this topic Rotavirus Vaccines Aged Out No longer eligible based on patient's age to complete this topic Insurance [place] [address] [place] [phone] [facility] MEDICARE SUPPLEMENT
[2024-12-08 12:06] LABS: Basophils Percent Auto 0.6 % (0-2); Eosinophils Absolute Auto 0.2 X10*3/uL (0.0-0.4); Eosinophils Percent Auto 2.2 % (0-4); Hematocrit 44.1 % (37.0-47.0); Hemoglobin 15.1 g/dl (12.0-16.0); Imm Gran Abs Auto 0.03 X10*3/uL (0.00-0.03); Imm Gran Pct Auto 0.4 % (0.0-0.4); Lymphocytes Absolute Auto 1.6 X10*3/uL (1.2-4.9); Lymphocytes Percent Auto 21.3 % (20-40); Mean Corpuscular HGB Conc 34.2 g/dl (31.0-35.0); Mean Corpuscular Volume 90.6 fL (80.0-98.0); Mean Platelet Volume 10.8 fL (9.4-12.3); Monocytes Absolute Auto 0.6 X10*3/uL (0.1-1.2); Monocytes Percent Auto 7.7 % (2-11); Neutrophils Absolute Auto 4.9 x10*3/uL (2.0-8.3); Neutrophils Percent Auto 67.8 % (45-73); Platelet Count 239 X10*3/uL (160-400); Red Blood Count 4.87 X10*6/uL (4.20-5.50); Red Cell Distribution Width 13.2 % (11.0-16.0); White Blood Count 7.3 X10*3/uL (4.8-10.8)
[2024-12-08 12:45] LABS: Alanine Aminotransferase 16 U/L (0-31); Albumin Level 4.3 g/dL (3.5-5.0); Alkaline Phosphatase 83 U/L (39-117); Anion Gap 9 (12-20); Aspartate Amino Transferase 19 U/L (5-31); Bilirubin Total 1.3 mg/dL (0.0-1.0); Blood Urea Nitrogen 10 mg/dL (9-16); Calcium 9.3 mg/dL (8.4-10.2); Carbon Dioxide 30 mmol/L (22-29); Chloride 109 mmol/L (96-108); Cholesterol 266 mg/dL (<200); Estimated Glomerular Filt Rate 58; Glucose Fasting 95 mg/dL (60-99); HDL Cholesterol 49 mg/dL (>40); LDL Cholesterol Calculated 181 mg/dL (<100); Magnesium 2.1 mg/dL (1.6-2.6); Potassium 4.5 mmol/L (3.3-5.1); Sodium 143 mmol/L (135-145); Total Protein 6.8 g/dL (6.5-8.0); Triglycerides 182 mg/dL (<150)
[2024-12-08 13:17] LABS: Vitamin B12 273 pg/mL (200-900)
== END 2024-12-08 10:28 | disposition home or self-care (01) ==
LOC: HO.LAB 10:27
PROVIDERS: PCP Internal Medicine Medical Oncology; Visit Provider Internal Medicine Medical Oncology
DX: E78.5 Hyperlipidemia, unspecified (principal); I10 Essential (primary) hypertension; K63.5 Polyp of colon
CPT/HCPCS: 36415; 80053; 80061; 82607; 83735; 85025

== ENCOUNTER 2024-12-10 10:00 | Outpatient (REF) | payer MEDICARE, OTHER, SELFPAY ==
[2024-12-14 21:04] LABS: Intrinsic Factor Antibodies Negative (Negative)
== END 2024-12-10 10:01 | disposition home or self-care (01) ==
LOC: HO.LAB 10:00
PROVIDERS: PCP Internal Medicine Medical Oncology; Visit Provider Internal Medicine Medical Oncology
DX: E53.8 Deficiency of other specified B group vitamins (principal)
CPT/HCPCS: 36415; 86340

== ENCOUNTER 2025-03-02 07:21 | Outpatient (REF) | payer MEDICARE, OTHER, SELFPAY ==
--- OUTSIDE RECORDS SUMMARY | 2024-07-30 05:30 | XMS_ITS ---
Author Organization Kendrick Rosas III, MD Address [address] [facility] [place] [address] Care Team Providers Care Recreation Therapist Name Role Phone Kendrick Rosas Primary Care Provider Allergies Allergen (clinical drug ingredient) Drug/Non Drug Allergy documented on EMR Reaction Allergy Type Onset Date Status No Known Drug Allergy Unknown Drug Allergy Active REASON FOR VISIT Tingling in feet, Hypertension, Hyperlipidemia, Overweight, Vitamin D deficiency Medications Medication SIG (Take, Route, Frequency, Duration) Notes Start Date End Date Status Vitamin D 25 MCG (1000 UT) 1 tablet Orally Once a day 10/03/2022 Active Social History Tobacco Use: Social History Observation Description Date Details (start date - stop date) Former Smoker NA - NA Sex Assigned At : Social History Observation Description Sex Assigned At Female Tobacco Use/Smoking Question Answer Notes Patient is a former smoker How long has it been since you last smoked? > 10 years Additional Findings: Tobacco Non-User Ex-cigaret te smoker Vital Signs Temperature 98.2 degrees Fahrenheit 07/30/19 25 Blood pressure systolic 142 mm Hg 07/30/19 25 Blood pressure diastolic 76 mm Hg 025 Heart Rate 86 /min 07/30/2024 Height 64 in 07/30/2024 Weight 164 lbs 07/30/2024 BMI 28.15 kg/m2 07/30/2024 Encounters Encounter Location Date Provider Diagnosis Kendrick Rosas III, MD [address] [place] [address] [place] [address] 07/30/2024 Kendrick Rosas Hyperlipidemia E78.5 ; Essential hypertension I10 ; Vitamin D deficiency, unspecified E55.9 ; Overweight E66.3 and Former smoker Z87.891 Assessments Encounter Date Diagnosis (ICD Code) Assessment Notes Treat ment Notes Treatment Clinical Notes 07/30/2024 Hyperlipidemia (ICD-10 - E78.5) Her total cholesterol is elevated at 250The HDL is normal. We discussed diet and nutrition today.She did not want to start on a statin medication. She will, however, consider this. We have reviewed the usual sources of cholesterol in the typical diet. She was counseled about reducing her cholesterol level by lifestyle modification. 07/30/2024 Essential hypertension (ICD-10 - I10) Her blood pressures currently controlled and no change in her regimen was needed. 07/30/2024 Vitamin D deficiency , unspecified (ICD-10 - E55.9) She was continued on her vitamin D. The most recent vitamin D level is within normal limits. 07/30/2024 Overweight (ICD-10 - E66.3) Her body mass index is stable at 27. We have discussed her diet and nutrition. We have made a pplan to lose weight at a rate of one half of a pound per week through a healthy diet combined with physical activity. 07/30/2024 Former smoker (ICD-1 0 - Z87.891) She is highly motivated not to smoke. She has a plan to prevent relapse in times of stress and illness. Plan Of Treatment Medication Medication Name Sig Start Date Stop Date Notes Vitamin D 25 MCG (1000 UT) 1 tablet Orally Once a day 09/22 Next Appt Details Follow Up: 4 Months, Reason: OV Provider Name:Kendrick Rosas, 03/09/2025 10:00:00 AM, [address] [place] [address] [address], [place], [id number], Provider Name:Kendrick Rosas, 04/30/2025 02:15:00 PM, [address] [place] [address] [address], [place], [phone], Progress Notes * Ambar LEONARDO SDOB: [birth year] (84 yo F)Acc No.[id number]:07/30/2024 Progress Notes Patient: Ambar LLOYD Provider: Shane Rosas MD :1940 A ge:84 Y S ex:Female Date:07/30/2024 Address:[address] [place] [address], [place], [id number] Subjective: * Chief Complaints: * T ingling in feetHypertensionHyperlipidemiaOverweightVitamin D deficiency * HPI: C OVID-19 Screening: She was last seen 3 months ago and returns today for blood pressure management review of her medical issues. She continues to have tingling in her feet but this is limited for the first hour after rising from bed. On examination today her reflexes were intact in her feet were pink and warm. Her blood pressure is currently stable. She has been compliant with her regimen. Her vision remains intact. No change in her medications was necessary. Questions H ave you had any new onset fever, chills, cough, congestion, sore throat, shortness of breath, muscle aches? N o * ROS: G eneral/Constitutional: pain o nly normal aches and pains. C hills d enies.?Fatigue a dmits. F ever d enies. E NT: Decreased hearing d enies. R espiratory: Cough d enies. C ardiovascular: Chest pain with exertion d enies. D yspnea on exertion?denies. S hortness of breath d enies. G astrointestinal: Constipation d enies. D ecreased appetite d enies.?Diarrhea d enies. H eartburn o ccasional. N ausea d enies. R ectal bleeding d enies. V omiting d enies. H ematology: bruising d enies. p etechiae d enies. S wollen glands n one have been noted. G enitourinary: Frequent urination d enies. M usculoskeletal: Muscle aches d enies. P ainful joints T ingling in her feet up on rising in the morning. S ciatica d enies. W eakness d enies. ? S kin: Itching d enies. R zulma d enies. S kin lesion(s)?denies. N eurologic: Difficulty speaking d enies. D izziness d enies.?Headache d enies. L ow back pain d enies. P sychiatric: Depressed mood d enies. * Medical History: * Surgical History: H ysterectomy 2000bilateral cataract surgery, Dr. Lee, [facility] colonoscopy, Dr. Kendrick Gannon, [facility] 2010hysterectomy, Dr. Sher tonsillectomy 2005total extractions of maxilla 2021full maxillary dental extraction 2022No history * Hospitalization/Major Diagno stic Procedure: N o history * Family History: F ather: 73 yrs, Coronary artery disease, lung cancer, diagnosed with CVD, Cancer.?Mother: 86 yrs, Ovarian cancer, breast cancer age 72, diagnosed with HTN, Cancer. 1 brother(s) . 2 son(s) - healthy. . Her mother had a history of breast and ovarian cancer. There is no history of genetic testing. Her father with lung cancer and heart disease. A brother has a history of colon cancer at the age of 86 and an aortic aneurysm. He also has hyperlipidemia. Her 2 sons are healthy and well. A grandmother had bladder cancer. A cousin had ovarian cancer. Another cousin had breast cancer. Ovarian cancer Breast cancer. * Social History: T obacco Use: T obacco Use/Smoking P atient is a f ormer smoker H ow long has it been since you last smoked??> 10 years A dditional Findings: Tobacco Non-User E x-cigarette smoker S he was born in [facility]. She worked on the [employer]. She has no history of sick exposures. She has never had a positive TB test. She has been to Nate for 57 years and they have 2 healthy sons. She has no grandchildren. She is [employer]. * Medications: T akingVitamin D 25 MCG (1000 UT) Tablet 1 tablet Orally Once a day Medication List reviewed and reconciled with the patientTaking Vitamin D 25 MCG (1000 UT) Tablet 1 tablet Orally Once a day Medication List reviewed and reconciled with the patient * Allergies: N o Known Drug Allergyno[Allergies Verified] Objective: * Vitals: H t: 64, Wt:164, BMI:28.15, BP:142/76, HR:86, Temp:98.2, Wt-k.39. * P ast Orders: Lab:Complete Blood Count Aut o Diff * Collection Date 07/24/2024 04/25/2024 11/07/2023 Collection Time 11:28 AM 09:38 AM 10:36 AM Order Date 07/24/2024 04/25/2024 11/07/2023 White Blood Count 6.9 (Ref Range: 4.8-10.8 X10*3/uL) 6.8 (Ref Range: 4.8-10.8 X10*3/uL) 8.3 (Ref Range: 4.8-10.8 X10*3/uL) Red Blood Count 4.82 (Ref Range: 4.20-5.50 X10*6/uL) 4.77 (Ref Range: 4.20-5.50 X10*6/uL) 4.85 (Ref Range: 4.20-5.50 X10*6/uL) Hemoglobin 14.9 (Ref Range: 12.0-16.0 g/dl) 15.0 (Ref Range: 12.0-16.0 g/dl) 14.5 (Ref Range: 12.0-16.0 g/dl) Hematocrit 43.7 (Ref Range: 37.0-47.0 %) 43.8 (Ref Range: 37.0-47.0 %) 43.4 (Ref Range: 37.0-47.0 %) Mean Corpuscular Volume 90.7 (Ref Range: 80.0-98.0 fL) 91.8 (Ref Range: 80.0-98.0 fL) 89.5 (Ref Range: 80.0-98.0 fL) Mean Corpuscular Hemoglobin 30.9 (Ref Range: 27.0-33.0 pg) 31.4 (Ref Range: 27.0-33.0 pg) 29.9 (Ref Range: 27.0-33.0 pg) Mean Corpuscular HGB Conc 34.1 (Ref Range: 31.0-35.0 g/dl) 34.2 (Ref Range: 31.0-35.0 g/dl) 33.4 (Ref Range: 31.0-35.0 g/dl) Red Cell Distribution Width 13.2 (Ref Range: 11.0-16.0 %) 13.3 (Ref Range: 11.0-16.0 %) 13.1 (Ref Range: 11.0-16.0 %) Platelet Count 241 (Ref Range: 160-400 X10*3/uL) 221 (Ref Range: 160-400 X10*3/uL) 313 (Ref Range: 160-400 X10*3/uL) Mean Platelet Volume 10.4 (Ref Range: 9.4-12.3 fL) 10.8 (Ref Range: 9.4-12.3 fL) 9.9 (Ref Range: 9.4-12.3 fL) Neutrophils Percent Auto 66.4 (Ref Range: 45-73 %) 67.2 (Ref Range: 45-73 %) 67.3 (Ref Range: 45-73 %) Imm Gran Pct Auto 0.3 (Ref Range: 0.0-0.4 %) 0.4 (Ref Range: 0.0-0.4 %) 0.5 H (Ref Range: 0.0-0.4 %) Lymphocytes Percent Auto 21.7 (Ref Range: 20-40 %) 22.2 (Ref Range: 20-40 %) 22.9 (Ref Range: 20-40 %) Monocytes Percent Auto 8.7 (Ref Range: 2-11 %) 7.0 (Ref Range: 2-11 %) 6.8 (Ref Range: 2-11 %) Eosinophils Percent Auto 2.3 (Ref Range: 0-4 %) 2.6 (Ref Range: 0-4 %) 1.8 (Ref Range: 0-4 %) Basophils Percent Auto 0.6 (Ref Range: 0-2 %) 0.6 (Ref Range: 0-2 %) 0.7 (Ref Range: 0-2 %) NRBC Pct Auto 0.0 (Ref Range: 0.0-0.2 /100WBC) 0.0 (Ref Range: 0.0-0.2 /100WBC) 0.0 (Ref Range: 0.0-0.2 /100WBC) Neutrophils Absolute Auto 4.6 (Ref Range: 2.0-8.3 x10*3/uL) 4.6 (Ref Range: 2.0-8.3 x10*3/uL) 5.6 (Ref Range: 2.0-8.3 x10*3/uL) Imm Gran Abs Auto 0.02 (Ref Range: 0.00-0.03 X10*3/uL) 0.03 (Ref Range: 0.00-0.03 X10*3/uL) 0.04 H (Ref Range: 0.00-0.03 X10*3/uL) Lymphocytes Absolute Auto 1.5 (Ref Range: 1.2-4.9 X10*3/uL) 1.5 (Ref Range: 1.2-4.9 X10*3/uL) 1.9 (Ref Range: 1.2-4.9 X10*3/uL) Monocytes Absolute Auto 0.6 (Ref Range: 0.1-1.2 X10*3/uL) 0.5 (Ref Range: 0.1-1.2 X10*3/uL) 0.6 (Ref Range: 0.1-1.2 X10*3/uL) Eosinophils Absolute Auto 0.2 (Ref Range: 0.0-0.4 X10*3/uL) 0.2 (Ref Range: 0.0-0.4 X10*3/uL) 0.2 (Ref Range: 0.0-0.4 X10*3/uL) Basophils Absolute Auto 0.0 (Ref Range: 0.0-0.2 X10*3/uL) 0.0 (Ref Range: 0.0-0.2 X10*3/uL) 0.1 (Ref Range: 0.0-0.2 X10*3/uL) NRBC Abs Auto 0.000 (Ref Range: 0.0-0.012 X10*3/uL) 0.000 (Ref Range: 0.0-0.012 X10*3/uL) 0.000 (Ref Range: 0.0-0.012 X10*3/uL) * Lab:Daina Rodriguez. Kamrane l Fast * Collection Date 07/24/2024 04/25/2024 11/07/2023 Collection Time 11:28 AM 09:38 AM 10:36 AM Order Date 07/24/2024 04/25/2024 11/07/2023 Sodium 142 (Ref Range: 135-145 mmol/L) 144 (Ref Range: 135-145 mmol/L) 143 (Ref Range: 135-145 mmol/L) Bilirubin Total 1.2 H (Ref Range: 0.0-1.0 mg/dL) 1.2 H (Ref Range: 0.0-1.0 mg/dL) 1.2 H (Ref Range: 0.0-1.0 mg/dL) Aspartate Amino Transferase 19 (Ref Range: 5-31 U/L) 19 (Ref Range: 5-31 U/L) 12 (Ref Range: 5-31 U/L) Alanine Aminotransferase 12 (Ref Range: 0-31 U/L) 15 (Ref Range: 0-31 U/L) 9 (Ref Range: 0-31 U/L) Total Protein 6.9 (Ref Range: 6.5-8.0 g/dL) 6.6 (Ref Range: 6.5-8.0 g/dL) 7.0 (Ref Range: 6.5-8.0 g/dL) Albumin Level 4.0 (Ref Range: 3.5-5.0 g/dL) 4.0 (Ref Range: 3.5-5.0 g/dL) 4.0 (Ref Range: 3.5-5.0 g/dL) Alkaline Phosphatase 74 (Ref Range: 39-117 U/L) 69 (Ref Range: 39-117 U/L) 88 (Ref Range: 39-117 U/L) Potassium 4.6 (Ref Range: 3.3-5.1 mmol/L) 4.3 (Ref Range: 3.3-5.1 mmol/L) 4.2 (Ref Range: 3.3-5.1 mmol/L) Chloride 110 H (Ref Range: 96-108 mmol/L) 109 H (Ref Range: 96-108 mmol/L) 107 (Ref Range: 96-108 mmol/L) Carbon Dioxide 27 (Ref Range: 22-29 mmol/L) 26 (Ref Range: 22-29 mmol/L) 30 H (Ref Range: 22-29 mmol/L) Anion Gap 10 L (Ref Range: 12-20) 13 (Ref Range: 12-20) 10 L (Ref Range: 12-20) Blood Urea Nitrogen 12 (Ref Range: 9-16 mg/dL) 11 (Ref Range: 9-16 mg/dL) 8 L (Ref Range: 9-16 mg/dL) Creatinine 0.78 (Ref Range: 0.5-1.4 mg/dL) 0.83 (Ref Range: 0.5-1.4 mg/dL) 0.90 (Ref Range: 0.5-1.4 mg/dL) Estimated Glomerular Filt Rate > 60 > 60 60 Glucose Fasting 98 (Ref Range: 60-99 mg/dL) 107 H (Ref Range: 60-99 mg/dL) 112 H (Ref Range: 60-99 mg/dL) Calcium 9.5 (Ref Range: 8.4-10.2 mg/dL) 9.7 (Ref Range: 8.4-10.2 mg/dL) 9.3 (Ref Range: 8.4-10.2 mg/dL) * Lab:Lipid Panel * Collection Date 07/24/2024 04/25/2024 11/07/2023 Collection Time 11:28 AM 09:38 AM 10:36 AM Order Date 07/24/2024 04/25/2024 11/07/2023 Triglycerides 158 H (Ref Range: <150 mg/dL) 196 H (Ref Range: <150 mg/dL) 186 H (Ref Range: <150 mg/dL) Cholesterol 250 H (Ref Range: <200 mg/dL) 266 H (Ref Range: <200 mg/dL) 246 H (Ref Range: <200 mg/dL) LDL Cholesterol Calculated 177 H (Ref Range: <100 mg/dL) 177 H (Ref Range: <100 mg/dL) 166 H (Ref Range: <100 mg/dL) HDL Cholesterol 42 (Ref Range: >40 mg/dL) 50 (Ref Range: >40 mg/dL) 43 (Ref Range: >40 mg/dL) ???Lab:Vitamin B12 and Folate (Order Date - 07/24/2024) (Collection Date & Time - 07/24/2024 11:28AM)?ValueReference Range?Vitamin [id number] - pg/mL?[id number]> or = 4.0 - ng/mL * Examination: G eneral Examination: GENERAL APPEARANCE: p leasant, well nourished, well developed, in no acute distress, calm and relaxed, overweight, woman. HEAD: a traumatic, normocephalic. EYES: e arsenio, perrla, anicteric, conjugate. EARS: n ormal. NOSE: s eptum intact. ORAL CAVITY: n ormal, unremarkable. NECK/THYROID: n o jugular venous distention, no carotid bruit, thyroid normal. LYMPH NODES: n o enlarged lymph nodes,spleen normal. SKIN: n o suspicious lesions, anicteric. HEART: n o clicks, gallops, murmurs, or rubs, regular rhythm, S1, S2 normal, no s3, or vascular bruits. LUNGS: c lear to auscultation . BREASTS: N ot examined. ABDOMEN: b owel sounds normal, no ascites, no organomegaly, no mass, overweight. RECTAL EXAM: n ot examined. MUSCULOSKELETAL: e xtremities unremarkable, no clubbing, cyanosis or edema, Examination of both feet unremarkable, pink and warm with adequate pulses. PERIPHERAL PULSES: n ormal. NEUROLOGIC: a lert and oriented, cranial nerves 2-12 grossly intact, deep tendon reflexes 2+ symmetrical, motor strength normal upper and lower extremities, sensory exam intact. PSYCH: a lert, oriented. Assessment: * Assessment: 1. H yperlipidemia - E78.5 (Primary) N otes :Her total cholesterol is elevated at 250The HDL is normal. We discussed diet and nutrition today.She did not want to start on a statin medication. She will, however, consider this. We have reviewed the usual sources of cholesterol in the typical diet. She was counseled about reducing her cholesterol level by lifestyle modification. 2 . E ssential hypertension - I10 N otes :Her blood pressures currently controlled and no change in her regimen was needed. 3 . V itamin D deficiency, unspecified - E55.9 N otes :She was continued on her vitamin D. The most recent vitamin D level is within normal limits. 4 . O verweight - E66.3 N otes :Her body mass index is stable at 27. We have discussed her diet and nutrition. We have made a pplan to lose weight at a rate of one half of a pound per week through a healthy diet combined with physical activity. 5 . F ormer smoker - Z87.891 N otes :She is highly motivated not to smoke. She has a plan to prevent relapse in times of stress and illness. Plan: * Treatment: * Procedure Codes: * Preventive Medicine: Counseling: C are goal follow-up plan: Counseling for abnormal BMI given Y es Above Normal BMI Follow-up D ietary management education, guidance, and counseling, Dietary needs education S moking/Tobacco Use Patient counseled on the dangers of tobacco use and urged to quit. 0 07/30/2024 * Follow Up: 4 Months (Reason: OV) * Images: * Sign off status: Completed true * Provider: Shane Rosas MD Date: 0 07/30/2024 Generated for Bharathi margot/Gretel/eTransmitting on: 0 03/02/2025 07:24 AM EDT History and Physical Notes * HPI (History of Present Illness) Category Sub-Category Detail Notes COVID-19 Screening Questions Have you had any new onset fever, chills, cough, congestion, sore throat, shortness of breath, muscle aches?: No Examination Category Sub-Category Detail Notes General Examination GENERAL APPEARANCE: pleasant , well nourished, well developed, in no acute distress, calm and relaxed, overweight, woman HEAD: atraumatic, normocep halic EYES: eomi, perrla, anicte simeon, conjugate EARS: normal NOSE: septum intact NECK/THYROID: no jugular venous di stention, no carotid bruit, thyroid normal HEART: no clicks, gallops, murmurs, or rubs, regular rhythm, S1, S2 normal, no s3, or vascular bruits LUNGS: clear to auscultatio n ABDOMEN: bowel sounds normal, no ascites, no organomegaly, no mass, overweight NEUROLOGIC: alert and oriented, cranial nerves 2-12 grossly intact, deep tendon reflexes 2+ symmetrical, motor strength normal upper and lower extremities, sensory exam intact SKIN: no suspicious lesion s, anicteric PERIPHERAL PULSES: normal BREASTS: Not examined MUSCULOSKELETAL: extremities unremark able, no clubbing, cyanosis or edema, Examination of both feet unremarkable, pink and warm with adequate pulses LYMPH NODES: no enlarged lymph no jozef,spleen normal RECTAL EXAM: not examined PSYCH: alert, oriented ORAL CAVITY: normal, unremarkable
--- OUTSIDE RECORDS SUMMARY | 2024-11-27 13:15 | XMS_ITS ---
Author Organization Kendrick Rosas III, MD Address [address] [facility] [place] [address] Care Team Providers Care Bird Raiser Name Role Phone Kenrdick Rosas Primary Care Provider Allergies Allergen (clinical drug ingredient) Drug/Non Drug Allergy documented on EMR Reaction Allergy Type Onset Date Status No Known Drug Allergy Unknown Drug Allergy Active REASON FOR VISIT Follow up Medications Medication SIG (Take, Route, Frequency, Duration) [...] Additional Findings: Tobacco Non-User Ex-cigaret te smoker Encounters Encounter Location Date Provider Diagnosis Kendrick Rosas III, MD [address] [place] [address] [place] [address] 11/27/2024 Kendrick Rosas Plan Of Treatment Medication Medication Name Sig Start Date Stop Date Notes Vitamin D 25 MCG (1000 UT) 1 tablet Orally Once a day 09/22 Next Appt Details Provider Name:Kendrick Rosas, 03/09/2025 10:00:00 AM, [address] [facility] [place], [address], Provider Name:Kendrick Rosas, 04/30/2025 02:15:00 PM, [address] [facility] [place], [address], Progress Notes * Ambar LEONARDO SDOB: [birth year] (84 yo F)Acc No.[id number]:11/27/2024 Progress Notes Patient: Ambar LLOYD Provider: Shane Rosas MD :1940 A ge:84 Y S ex:Female Date:11/27/2024 Address:[address] [place], [place] [id number] Subjective: * Chief Complaints: * 1 . Follow up. * HPI: C OVID-19 Screening: Questions H ave you had any new [...] appetite d enies.?Diarrhea d enies. H eartburn d enies. N ausea d enies. R ectal bleeding?denies. V omiting d enies. H ematology: bruising d enies. p etechiae d enies. S wollen glands n one have been noted. G enitourinary: Frequent urination d enies. M usculoskeletal: Muscle aches d enies. P ainful joints d enies. S ciatica d enies. W eakness d enies. S kin: Itching d enies. R zulma d enies. S kin lesion(s)?denies. N eurologic: Difficulty speaking d enies. D izziness d enies.?Headache d enies. L ow back pain d enies. P sychiatric: Depressed mood d enies. * Medical History: O verweight, Hyperlipidemia, Hypertension, Cataracts, Colonic polyps, Former smoker. * Surgical History: H ysterectomy 1999, bilateral cataract surgery, Dr. Lee, [facility] , colonoscopy, Dr. Kendrick Gannon, [facility] 2010, hysterectomy, Dr. Sher , tonsillectomy 2004, total extractions of maxilla 2021, full maxillary dental extraction 2022, No history . * Hospitalization/Major Diagno stic Procedure: N o history . * Family History: F ather: 73 yrs, Coronary artery disease, lung cancer, diagnosed with Cancer, CVD.?Mother: 86 yrs, Ovarian cancer, breast cancer age [...] T obacco Use: T obacco Use/Smoking P atleandro is a f ormer smoker H ow long has it been since you last smoked??> 10 years A dditional Findings: Tobacco Non-User E x-cigarette smoker S he was born in [facility]. She worked on the [employer]. She has no history of sick exposures. She has never had a positive TB test. She has been to Nate for 57 years and they have 2 healthy sons. She has no grandchildren. She is [employer]. * Medications: T aking Vitamin D 25 MCG (1000 UT) Tablet 1 tablet Orally Once a day , Medication List reviewed and reconciled with the patient * Allergies: N o Known Drug Allergy. Objective: * Vitals: * Examination: G eneral Examination: GENERAL APPEARANCE: p leasant, well nourished, well developed, in no acute distress, calm and relaxed. HEAD: a traumatic, normocephalic. EYES: e arsenio, [...] LUNGS: c lear to auscultation . BREASTS: no masses palpable bilaterally. ABDOMEN: b owel sounds normal, no ascites, no organomegaly, no mass. RECTAL EXAM: n ot examined. MUSCULOSKELETAL: e xtremities unremarkable, no clubbing, cyanosis or edema. PERIPHERAL PULSES: n ormal. NEUROLOGIC: a lert and oriented, cranial nerves 2-12 grossly intact, deep tendon reflexes 2+ symmetrical, motor strength normal upper and lower extremities, sensory exam intact. PSYCH: a lert, oriented. Assessment: Plan: * Treatment: * Images: * The named appointment provid er may or may not be the originator of this progress note, and it is not deemed complete until electronically signed by the appointment provider. Sign off status: Pending * Provider: Shane Rosas MD Date: 0 11/27/2024 Generated for Bharathi margot/Gretel/eTransmitting on: 0 03/02/2025 [...] developed, in no acute distress, calm and relaxed HEAD: atraumatic, normocep halic EYES: eomi, perrla, anicte simeon, conjugate EARS: normal NOSE: septum intact NECK/THYROID: no jugular venous di stention, no carotid bruit, thyroid normal HEART: no clicks, gallops, murmurs, or rubs, regular rhythm, S1, S2 normal, no s3, or vascular bruits LUNGS: clear to auscultatio n ABDOMEN: bowel sounds normal, no ascites, no organomegaly, no mass NEUROLOGIC: alert and oriented, cranial nerves 2-12 grossly intact, deep tendon reflexes 2+ symmetrical, motor strength normal upper and lower extremities, sensory exam intact SKIN: no suspicious lesion s, anicteric PERIPHERAL PULSES: normal BREASTS: no masses palpable b ilaterally MUSCULOSKELETAL: extremities unremark able, no clubbing, cyanosis or edema LYMPH NODES: no enlarged lymph no jozef,spleen normal RECTAL EXAM: not examined PSYCH: alert, oriented ORAL CAVITY: normal, unremarkable
--- OUTSIDE RECORDS SUMMARY | 2024-12-08 05:45 | XMS_ITS ---
Author Organization Kendrick Rosas III, MD Address [address] [place] [address] Care Team Providers Care Marketing Manager Health Communications Name Role Phone Kendrick Rosas Primary Care Provider Allergies Allergen (clinical drug ingredient) Drug/Non Drug Allergy documented on EMR Reaction Allergy Type Onset Date Status No Known Drug Allergy Unknown Drug Allergy Active Results Component Value Reference Range Notes Lipid Panel Reviewed date:12/09/2024 01:19:32 PM Interpretation: Performing Lab:[facility], [address] [place] [phone] Notes/Report: Triglycerides 182 <150 mg/dL Desirable Triglyceride: less than 150 mg/dL Borderline High Triglyceride 150-199 mg/dL High Triglyceride: 200-499 mg/dL Very High Triglyceride: greater than or equal to 5OO mg/dL Cholesterol 266 <200 mg/dL Desirable Cholesterol: less than 200 mg/dL Borderline High Cholesterol: 200-239 mg/dL High Cholesterol: greater than 239 mg/dL LDL Cholesterol Calculated 181 <100 mg/dL Desirable LDL: less than 100 mg/dL Near Optimal/Above Optimal LDL: 110-129 mg/dL Borderline High LDL: 130-159 mg/dL High LDL: 160-189 mg/dL Very High LDL: greater than or equal to 190 mg/dL HDL Cholesterol 49 >40 mg/dL Desirable HDL: greater than 40 mg/dL Note: This HDL assay may give artificially low results in patients with liver disease. Vitamin B12 Reviewed date:12/09/2024 01:19:32 PM Interpretation: Performing Lab:[facility], [address] [place] [phone] Notes/Report: Vitamin B12 273 200-900 pg/mL NORMAL 200-900 PG/ML INDETERMINATE 160-199 PG/ML DEFICIENT < 160 PG/ML REASON FOR VISIT New onset lower extremity paresthesias, Hyperlipidemia, Hypertension, Overweight, Vitamin D deficiency Medications Medication SIG [...] Non-User Ex-cigaret te smoker Vital Signs Temperature 97.4 degrees Fahrenheit 12/09/19 25 Blood pressure systolic 138 mm Hg 12/09/19 25 Blood pressure diastolic 79 mm Hg 025 Heart Rate 71 /min 12/08/2024 Height 64 in 12/08/2024 Weight 167 lbs 12/08/2024 BMI 28.66 kg/m2 12/08/2024 Encounters Encounter Location Date Provider Diagnosis Kendrick Rosas III, MD [address] [place] [address] [place] [address] 12/08/2024 Kendrick Rosas Hyperlipidemia E78.5 ; Essential hypertension I10 ; Screening mammogram, encounter for Z12.31 ; Polyp of colon, unspecified part of colon, unspecified type K63.5 ; Vitamin D deficiency, unspecified E55.9 ; Overweight E66.3 and Former smoker Z87.891 Assessments Encounter Date Diagnosis (ICD Code) Assessment Notes Treat ment Notes Treatment Clinical Notes 12/08/2024 Hyperlipidemia (ICD-10 - E78.5) Her lipids have been elevated into a treatable range. She continues to refuse to take a statin medication. We will proceed with a low cholesterol diet. 12/08/2024 Essential hypertension (ICD-10 - I10) Her blood pressure is currently stable and no change in her regimen was needed today. 12/08/2024 Screening mammogram, encounter for (ICD-10 - Z12.31) An annual screening mammogram has been ordered. 12/08/2024 Polyp of colon, unspecified part of colon, unspecified type (ICD-10 - K63.5) This was foundd on a previous colonoscopy. She is free of any colonic symptoms today. She denies any bleeding or abdominal pain. 12/08/2024 Vitamin D deficiency , unspecified (ICD-10 - E55.9) She was continued on her vitamin D. The most recent vitamin D level is within normal limits. 12/08/2024 Overweight (ICD-10 - E66.3) Her body mass index is stable at 27. We have discussed her diet and nutrition. We have made a pplan to lose weight at a rate of one half of a pound per week through a healthy diet combined with physical activity. 12/08/2024 Former smoker (ICD-1 0 - Z87.891) She is highly motivated not to smoke. She has a plan to prevent relapse in times of stress and illness. Plan Of Treatment Medication Medication Name Sig Start Date Stop Date Notes Vitamin D 25 MCG (1000 UT) 1 tablet Orally Once a day 09/22 Pending Test Test Name Order Date PROFILE, FASTING (COMPREHENSIVE METABOLI C) 12/08/2024 MAGNESIUM 12/08/2024 CBC w DIFF 12/08/2024 Folate 12/08/2024 MM tomosynthesis screening BI 12/08/2024 Next Appt Details Follow Up: 4 Months, Reason: Office visit Provider Name:Kendrick Rosas, 03/09/2025 10:00:00 AM, [address] [place] [address] [address], [place], [address], Provider Name:Kendrick Rosas, 04/30/2025 02:15:00 PM, [address] [place] [address] [address], [place], [address], Progress Notes * Ambar LEONAROD SDOB: [birth year] (84 yo F)Acc No.[id number]:12/08/2024 Progress Notes Patient: Ambar LLOYD Provider: Shane Rosas MD :1940 A ge:84 Y S ex:Female Date:12/08/2024 Address:[address] [place], [place] [id number] Subjective: * Chief Complaints: * N ew onset lower extremity paresthesiasHyperlipidemiaHypertensionOverweightVitamin D deficiency * HPI: C OVID-19 Screening: Questions H ave you had any new onset fever, chills, cough, congestion, sore throat, shortness of breath, muscle aches? N o She returns for management of her medical issues. She has gained a few pounds. She reports first had a cardiac catheterization and a stent inserted. He is now doing well without chest pain. She has noted tingling in her lower extremities, below her knees and in her feet. It is constant day and night. She has had no injury. She denies any back pain. On examination today, lumbar spine was unremarkable. An evaluation with blood work for neuropathy was done. The results are available and was discussed with her today. * ROS: G eneral/Constitutional: pain U ncomfortable tingling and numbness below knees. C hills d enies. F atigue a dmits. F ever d enies. E NT: Decreased hearing m ild. R espiratory: Cough d enies. C ardiovascular: Chest pain with exertion d enies. D yspnea on exertion?denies. S hortness of breath d enies. G astrointestinal: Constipation o ccasional. D ecreased appetite d enies. D iarrhea d enies. H eartburn d enies. N ausea d enies. R ectal bleeding [...] H ysterectomy 2000bilateral cataract surgery, Dr. Lee, [facility] colonoscopy, Dr. Kendrick Gannon, [facility] 2011hysterectomy, Dr. Sher tonsillectomy 2005total extractions of maxilla [...] x-cigarette smoker S he was born in [facility]. She worked on the [employer] [place]. She has no history of sick exposures. She has never had a positive TB test. She has been to Nate for 57 years and they have 2 healthy sons. She has no grandchildren. She is Rastafarian. * Medications: T akingVitamin D 25 MCG (1000 UT) Tablet 1 tablet Orally Once a day Medication List reviewed and reconciled with the patientTaking Vitamin D 25 MCG (1000 UT) Tablet 1 tablet Orally Once a day Medication List reviewed and reconciled with the patient * Allergies: N o Known Drug Allergyno[Allergies Verified] Objective: * Vitals: H t: 64, Wt:167, BMI:28.66, BP:138/79, HR:71, Temp:97.4, Wt-k.75. * P ast Orders: L ab:Magnesium (Order Date - 12/08/2024) (Collection Date & Time - 12/08/2024 10:40 AM) Value Reference Range Magnesium 2.1 1.6-2.6 - mg/dL Lab:Lipid Panel * Collection Date 12/08/2024 07/24/2024 04/25/2024 Collection Time 10:40 AM 11:28 AM 09:38 AM Order Date 12/08/2024 07/24/2024 04/25/2024 Triglycerides 182 H (Ref Range: <150 mg/dL) 158 H (Ref Range: <150 mg/dL) 196 H (Ref Range: <150 mg/dL) Cholesterol 266 H (Ref Range: <200 mg/dL) 250 H (Ref Range: <200 mg/dL) 266 H (Ref Range: <200 mg/dL) LDL Cholesterol Calculated 181 H (Ref Range: <100 mg/dL) 177 H (Ref Range: <100 mg/dL) 177 H (Ref Range: <100 mg/dL) HDL Cholesterol 49 (Ref Range: >40 mg/dL) 42 (Ref Range: >40 mg/dL) 50 (Ref Range: >40 mg/dL) ???Lab:Vitamin B12 (Order Date - 12/08/2024) (Collection Date & Time - 12/08/2024 10:40 AM)?ValueReference Range?Vitamin [id number] - pg/mL * Lab:Complete Blood Count Aut o Diff * Collection Date 12/08/2024 07/24/2024 04/25/2024 Collection Time 10:40 AM 11:28 AM 09:38 AM Order Date 12/08/2024 07/24/2024 04/25/2024 White Blood Count 7.3 (Ref Range: 4.8-10.8 X10*3/uL) 6.9 (Ref Range: 4.8-10.8 X10*3/uL) 6.8 (Ref Range: 4.8-10.8 X10*3/uL) Red Blood Count 4.87 (Ref Range: 4.20-5.50 X10*6/uL) 4.82 (Ref Range: 4.20-5.50 X10*6/uL) 4.77 (Ref Range: 4.20-5.50 X10*6/uL) Hemoglobin 15.1 (Ref Range: 12.0-16.0 g/dl) 14.9 (Ref Range: 12.0-16.0 g/dl) 15.0 (Ref Range: 12.0-16.0 g/dl) Hematocrit 44.1 (Ref Range: 37.0-47.0 %) 43.7 (Ref Range: 37.0-47.0 %) 43.8 (Ref Range: 37.0-47.0 %) Mean Corpuscular Volume 90.6 (Ref Range: 80.0-98.0 fL) 90.7 (Ref Range: 80.0-98.0 fL) 91.8 (Ref Range: 80.0-98.0 fL) Mean Corpuscular Hemoglobin 31.0 (Ref Range: 27.0-33.0 pg) 30.9 (Ref Range: 27.0-33.0 pg) 31.4 (Ref Range: 27.0-33.0 pg) Mean Corpuscular HGB Conc 34.2 (Ref Range: 31.0-35.0 g/dl) 34.1 (Ref Range: 31.0-35.0 g/dl) 34.2 (Ref Range: 31.0-35.0 g/dl) Red Cell Distribution Width 13.2 (Ref Range: 11.0-16.0 %) 13.2 (Ref Range: 11.0-16.0 %) 13.3 (Ref Range: 11.0-16.0 %) Platelet Count 239 (Ref Range: 160-400 X10*3/uL) 241 (Ref Range: 160-400 X10*3/uL) 221 (Ref Range: 160-400 X10*3/uL) Mean Platelet Volume 10.8 (Ref Range: 9.4-12.3 fL) 10.4 (Ref Range: 9.4-12.3 fL) 10.8 (Ref Range: 9.4-12.3 fL) Neutrophils Percent Auto 67.8 (Ref Range: 45-73 %) 66.4 (Ref Range: 45-73 %) 67.2 (Ref Range: 45-73 %) Imm Gran Pct Auto 0.4 (Ref Range: 0.0-0.4 %) 0.3 (Ref Range: 0.0-0.4 %) 0.4 (Ref Range: 0.0-0.4 %) Lymphocytes Percent Auto 21.3 (Ref Range: 20-40 %) 21.7 (Ref Range: 20-40 %) 22.2 (Ref Range: 20-40 %) Monocytes Percent Auto 7.7 (Ref Range: 2-11 %) 8.7 (Ref Range: 2-11 %) 7.0 (Ref Range: 2-11 %) Eosinophils Percent Auto 2.2 (Ref Range: 0-4 %) 2.3 (Ref Range: 0-4 %) 2.6 (Ref Range: 0-4 %) Basophils Percent Auto 0.6 (Ref Range: 0-2 %) 0.6 (Ref Range: 0-2 %) 0.6 (Ref Range: 0-2 %) NRBC Pct Auto 0.0 (Ref Range: 0.0-0.2 /100WBC) 0.0 (Ref Range: 0.0-0.2 /100WBC) 0.0 (Ref Range: 0.0-0.2 /100WBC) Neutrophils Absolute Auto 4.9 (Ref Range: 2.0-8.3 x10*3/uL) 4.6 (Ref Range: 2.0-8.3 x10*3/uL) 4.6 (Ref Range: 2.0-8.3 x10*3/uL) Imm Gran Abs Auto 0.03 (Ref Range: 0.00-0.03 X10*3/uL) 0.02 (Ref Range: 0.00-0.03 X10*3/uL) 0.03 (Ref Range: 0.00-0.03 X10*3/uL) Lymphocytes Absolute Auto 1.6 (Ref Range: 1.2-4.9 X10*3/uL) 1.5 (Ref Range: 1.2-4.9 X10*3/uL) 1.5 (Ref Range: 1.2-4.9 X10*3/uL) Monocytes Absolute Auto 0.6 (Ref Range: 0.1-1.2 X10*3/uL) 0.6 (Ref Range: 0.1-1.2 X10*3/uL) 0.5 (Ref Range: 0.1-1.2 X10*3/uL) Eosinophils Absolute Auto 0.2 (Ref Range: 0.0-0.4 X10*3/uL) 0.2 (Ref Range: 0.0-0.4 X10*3/uL) 0.2 (Ref Range: 0.0-0.4 X10*3/uL) Basophils Absolute Auto 0.0 (Ref Range: 0.0-0.2 X10*3/uL) 0.0 (Ref Range: 0.0-0.2 X10*3/uL) 0.0 (Ref Range: 0.0-0.2 X10*3/uL) NRBC Abs Auto 0.000 (Ref Range: 0.0-0.012 X10*3/uL) 0.000 (Ref Range: 0.0-0.012 X10*3/uL) 0.000 (Ref Range: 0.0-0.012 X10*3/uL) * Lab:[facility] * Collection Date 12/08/2024 07/24/2024 04/25/2024 Collection Time 10:40 AM 11:28 AM 09:38 AM Order Date 12/08/2024 07/24/2024 04/25/2024 Sodium 143 (Ref Range: 135-145 mmol/L) 142 (Ref Range: 135-145 mmol/L) 144 (Ref Range: 135-145 mmol/L) Bilirubin Total 1.3 H (Ref Range: 0.0-1.0 mg/dL) 1.2 H (Ref Range: 0.0-1.0 mg/dL) 1.2 H (Ref Range: 0.0-1.0 mg/dL) Aspartate Amino Transferase 19 (Ref Range: 5-31 U/L) 19 (Ref Range: 5-31 U/L) 19 (Ref Range: 5-31 U/L) Alanine Aminotransferase 16 (Ref Range: 0-31 U/L) 12 (Ref Range: 0-31 U/L) 15 (Ref Range: 0-31 U/L) Total Protein 6.8 (Ref Range: 6.5-8.0 g/dL) 6.9 (Ref Range: 6.5-8.0 g/dL) 6.6 (Ref Range: 6.5-8.0 g/dL) Albumin Level 4.3 (Ref Range: 3.5-5.0 g/dL) 4.0 (Ref Range: 3.5-5.0 g/dL) 4.0 (Ref Range: 3.5-5.0 g/dL) Alkaline Phosphatase 83 (Ref Range: 39-117 U/L) 74 (Ref Range: 39-117 U/L) 69 (Ref Range: 39-117 U/L) Potassium 4.5 (Ref Range: 3.3-5.1 mmol/L) 4.6 (Ref Range: 3.3-5.1 mmol/L) 4.3 (Ref Range: 3.3-5.1 mmol/L) Chloride 109 H (Ref Range: 96-108 mmol/L) 110 H (Ref Range: 96-108 mmol/L) 109 H (Ref Range: 96-108 mmol/L) Carbon Dioxide 30 H (Ref Range: 22-29 mmol/L) 27 (Ref Range: 22-29 mmol/L) 26 (Ref Range: 22-29 mmol/L) Anion Gap 9 L (Ref Range: 12-20) 10 L (Ref Range: 12-20) 13 (Ref Range: 12-20) Blood Urea Nitrogen 10 (Ref Range: 9-16 mg/dL) 12 (Ref Range: 9-16 mg/dL) 11 (Ref Range: 9-16 mg/dL) Creatinine 0.92 (Ref Range: 0.5-1.4 mg/dL) 0.78 (Ref Range: 0.5-1.4 mg/dL) 0.83 (Ref Range: 0.5-1.4 mg/dL) Estimated Glomerular Filt Rate 58 > 60 > 60 Glucose Fasting 95 (Ref Range: 60-99 mg/dL) 98 (Ref Range: 60-99 mg/dL) 107 H (Ref Range: 60-99 mg/dL) Calcium 9.3 (Ref Range: 8.4-10.2 mg/dL) 9.5 (Ref Range: 8.4-10.2 mg/dL) 9.7 (Ref Range: 8.4-10.2 mg/dL) * Examination: G eneral Examination: GENERAL APPEARANCE: p leasant, well nourished, well developed, in no acute distress, calm and relaxed, overweight, elderly woman. HEAD: a traumatic, normocephalic. EYES: e [...] a lert, oriented. Assessment: * Assessment: 1. E ssential hypertension - I10 (Primary) N otes :Her blood pressure is currently stable and no change in her regimen was needed today. 2 . H yperlipidemia - E78.5 N otes :Her lipids have been elevated into a treatable range. She continues to refuse to take a statin medication. We will proceed with a low cholesterol diet. 3 . S creening mammogram, encounter for - Z12.31 N otes :An annual screening mammogram has been ordered. 4 . P olyp of colon, unspecified part of colon, unspecified type - K63.5 ? N otes :This was foundd on a previous colonoscopy. She is free of any colonic symptoms today. She denies any bleeding or abdominal pain. 5 . V itamin D deficiency, unspecified - E55.9 N otes :She was continued on her vitamin D. The most recent vitamin D level is within normal limits. 6 . O verweight - E66.3 N otes :Her body mass index is stable at 27. We have discussed her diet and nutrition. We have made a pplan to lose weight at a rate of one half of a pound per week through a healthy diet combined with physical activity. 7 . F ormer smoker - Z87.891 N otes :She is highly motivated not to smoke. She has a plan to prevent relapse in times of stress and illness. Plan: * Treatment: Value Reference Range T riglycerides 182 H <150 - mg/dL * C holesterol 266 H <200 - mg/dL * L DL Cholesterol Calculated 181 H <100 - mg/dL * H DL Cholesterol 49 >40 - mg/dL ?LAB: Vitamin B12 (Collection Date & Time - 12/08/2024 10:40 AM)* Value Reference Range V itamin B12 273 200-900 - pg/mL 2.?Hyperlipidemia?LAB: PROFILE, FASTING (COMPREHENSIVE METABOLIC) ?LAB: MAGNESIUM ?LAB: CBC w DIFF ?LAB: Folate ?LAB: Lipid Panel (Collection Date & Time - 12/08/2024 10:40 AM)* Value Reference Range T riglycerides 182 H <150 - mg/dL * C holesterol 266 H <200 - mg/dL * L DL Cholesterol Calculated 181 H <100 - mg/dL * H DL Cholesterol 49 >40 - mg/dL ?LAB: Vitamin B12 (Collection Date & Time - 12/08/2024 10:40 AM)* Value Reference Range V itamin B12 273 200-900 - pg/mL 3.?Screening mammogram, encounter for?Imaging: MM tomosynthesis screening BI4.?Polyp of colon, unspecified part of colon, unspecified type?LAB: PROFILE, FASTING (COMPREHENSIVE METABOLIC) ?LAB: MAGNESIUM ?LAB: CBC w DIFF ?LAB: Folate ?LAB: Lipid Panel (Collection Date & Time - 12/08/2024 10:40 AM)* Value Reference Range T riglycerides 182 H <150 - mg/dL * C holesterol 266 H <200 - mg/dL * L DL Cholesterol Calculated 181 H <100 - mg/dL * H DL Cholesterol 49 >40 - mg/dL ?LAB: Vitamin B12 (Collection Date & Time - 12/08/2024 10:40 AM)* Value Reference Range V itamin B12 273 200-900 - pg/mL 5.?Others? Continue Vitamin D Tablet, 25 MCG (1000 UT), 1 tablet, Orally, Once a day.?? * Procedure Codes: * Preventive Medicine: Counseling: C are goal follow-up plan: Counseling for abnormal BMI given Y es Above Normal BMI Follow-up D ietary management education, guidance, and counseling S moking/Tobacco Use Patient counseled on the dangers of tobacco use and urged to quit. 0 12/08/2024 * Follow Up: 4 Months (Reason: Office visit) * Images: * Sign off status: Completed true * Provider: Shane Rosas MD Date: 0 12/08/2024 Generated for Printi ng/Faxing/eTransmitting on: 0 03/02/2025 07:25 AM EDT History and Physical Notes * HPI (History of Present Illness) Category Sub-Category Detail Notes COVID-19 Screening Questions Have you had any new onset fever, chills, cough, congestion, sore throat, shortness of breath, muscle aches?: No Examination Category Sub-Category Detail Notes General Examination GENERAL APPEARANCE: pleasant , well nourished, well developed, in no acute distress, calm and relaxed, overweight, elderly woman HEAD: atraumatic, normocep halic EYES: eomi, [...]
--- OUTSIDE RECORDS SUMMARY | 2024-12-09 09:30 | XMS_ITS ---
Author Organization Kendrick Rosas III, MD Address [address] [place] [address] Care Team Providers Care Cigar Making Supervisor Name Role Phone Kendrick Rosas Primary Care Provider Results Component Value Reference Range Notes Intrinsic Factor Antibodies Reviewed date:12/30/2024 01:45:56 PM Interpretation: Performing Lab:[facility], [address] [place] [id number] Notes/Report: Intrinsic Factor Antibodies Negative Negative For additional information, please refer to [email or web address]/[email or web address] (This link is being provided for informational/ educational purposes only.) THIS TEST WAS PERFORMED AT: [facility]/[address] [address] MIGUELITO YOUNG MD,PHD REASON FOR VISIT Lab Order Social History Sex Assigned At : Social History Observation Description Sex Assigned At Female Encounters Encounter Location Date Provider Diagnosis Kendrick Rosas III, MD [address] [place] [address] [place] [address] 12/09/2024 Kendrick Rosas Vitamin B12 deficiency E53.8 Assessments Encounter Date Diagnosis (ICD Code) Assessment Notes Treatment Notes Treatment Clinical Notes 12/09/2024 Vitamin B12 deficiency (ICD-10 - E53.8) Plan Of Treatment Next Appt Details Provider Name:Kendrick Rosas, 03/09/2025 10:00:00 AM, [address], [address], Provider Name:Kendrick Rosas, 04/30/2025 02:15:00 PM, [address], [address], [address], Progress Notes * Ambar LEONARDO SDOB: [birth year] (84 yo F)Acc No.[id number]:12/09/2024 Patient: Ambar LLOYD :1940 A ge:84 Y S ex:Female Address:[address] [place] [address], [phone] Subjective: * Chief Complaints: * L ab Order * Medical History: * Surgical History: * Hospitalization/Major Diagno stic Procedure: * Medications: Objective: * Vitals: * Physical Examination: Assessment: * Assessment: 1. V itamin B12 deficiency - E53.8 Plan: * Treatment: * Procedure Codes: * true * Date: Generated for Tyrel frost/Gretel/Dionnesmitting on: 0 03/02/2025 07:24 AM EDT
--- OUTSIDE RECORDS SUMMARY | 2024-12-29 05:45 | XMS_ITS ---
Author Organization Kendrick Rosas III, MD Address [address] [place] [address] [place] [address] Care Team Providers Care Panel Assembler Name Role Phone Kendrick Rosas Primary Care Provider [phone] Allergies Allergen (clinical drug ingredient) Drug/Non Drug Allergy documented on EMR Reaction Allergy Type Onset Date Status No Known Drug Allergy Unknown Drug Allergy Active REASON FOR VISIT Tingling and numbness lower extremities, Hyperlipidemia, Hypertension, Overweight, Low-normal vitamin B12 level Medications Medication SIG (Take, Route, Frequency, Duration) Notes Start Date End Date Status Vitamin D 25 MCG (1000 UT) 1 tablet Oral ly Once a day 10/03/2022 Active Cyanocobalamin 1000 MCG 1 tablet Orally Once a day for 30 days 12/29/2024 12/24/2025 Active Social History Tobacco Use: Social History Observation Description Date Details (start date - stop date) Former Smoker NA - NA Sex Assigned At : Social History Observation Description Sex Assigned At Female Tobacco Use/Smoking Question Answer Notes Patient is a former smoker How long has it been since you last smoked? > 10 years Additional Findings: Tobacco Non-User Ex-cigaret te smoker Problems Problem Type SNOMED Code ICD Code Onset Dates Problem Status W/U Status Risk Notes Problem 052268261 Vitamin B 12 deficiency (E53.8) Active confirmed Her vitamin B12 level of 273 he is in the normal range, but quite low. I have given her a trial of oral vitamin B12 because of the peripheral neuropathy. Vital Signs Height 64 in 12/29/2024 Weight 167 lbs 12/29/2024 BMI 28.66 kg/m2 12/29/2024 Encounters Encounter Location Date Provider Diagnosis Kendrick Rosas III, MD [address] [place] [address] [place] [address] 12/29/2024 Kendrick Rosas Vitamin B 12 deficie ncy E53.8 ; Essential hypertension I10 ; Hyperlipidemia E78.5 ; Overweight E66.3 and Former smoker Z87.891 Assessments Encounter Date Diagnosis (ICD Code) Assessment Notes Treat ment Notes Treatment Clinical Notes 12/29/2024 Vitamin B 12 deficiency (ICD-10 - E53.8) Her vitamin B12 level of 273 he is in the normal range, but quite low. I have given her a trial of oral vitamin B12 because of the peripheral neuropathy. 12/29/2024 Essential hypertension (ICD-10 - I10) She was given an appointment to come to the office in 6 weeks to measure her blood pressure. 12/29/2024 Hyperlipidemia (ICD-10 - E78.5) Her lipids have been elevated into a treatable range. She continues to refuse to take a statin medication. We will proceed with a low cholesterol diet. 12/29/2024 Overweight (ICD-10 - E66.3) Her body mass index is stable at 27. We have discussed her diet and nutrition. We have made a pplan to lose weight at a rate of one half of a pound per week through a healthy diet combined with physical activity. 12/29/2024 Former smoker (ICD-1 0 - Z87.891) She is highly motivated not to smoke. She has a plan to prevent relapse in times of stress and illness. Plan Of Treatment Medication Medication Name Sig Start Date Stop Date Notes Vitamin D 25 MCG (1000 UT) 1 tablet Orally Once a day 09/22 Cyanocobalamin 1000 MCG 1 tablet Orally Once a day for 30 days 12/29/2024 12/24/2025 Pending Test Test Name Order Date CBC w DIFF 12/29/2024 Vitamin B12 12/29/2024 Next Appt Details Follow Up: mid feb appt, Re ason: ov review labs Provider Name:Kendrick Rosas, 03/09/2025 10:00:00 AM, [address] [facility] [place], [place], [address], Provider Name:Kendrick Rosas, 04/30/2025 02:15:00 PM, [address] [facility] [place], [address], Progress Notes * Ambar LEONARDO SDOB: [birth year] (84 yo F)Acc No.[id number]:12/29/2024 Patient: Ambar LLOYD Provider: Shane Rosas MD :1940 A ge:84 Y S ex:Female Date:12/29/2024 Address:[address] [place] [address], [id number] Subjective: * Chief Complaints: * T ingling and numbness lower extremitiesHyperlipidemiaHypertensionOverweightLow- normal vitamin B12 level * HPI: * : LE paresthesias no fall, i did rx for b12. On her last visit she complains of tingling and numbness in her lower extremities. Evaluation and blood work was ordered. She has continued to have them that they feel slightly better. She has had no falls medication. He is unsteady at home. Her vitamin D 12 levelWas low normal at 273. An intrinsic factor antibody level is negative. I have prescribed oral vitamin B12 1000 mcg daily with a followup visit in 6 weeks to see if this improves the neuropathic symptoms. If not, she will have a nerve conduction study. Telehealth L ocation of provider rendering services: { ...} [address] [facility] [address] L ocation of patient: aleshia ddress listed in demographics for today's visit P atient identification confirmed using: SELIN Cho ame T elehealth method: T elephone only. Patient not visible to care provider. C onsent: P atient verbally consented to treatment, Patient verbally consented to billing insurance company, Patient informed of any privacy concerns related to method of visit T otal time spent with patient (mins) 1 5 * ROS: G eneral/Constitutional: pain o nly [...] have been noted. G enitourinary: Frequent urination a t night. M usculoskeletal: Muscle aches d enies. P ainful joints d enies. S ciatica d enies. W eakness d enies. S kin: Itching d enies. R zulma d enies. S kin lesion(s)?denies. N eurologic: Difficulty speaking d enies. D izziness d enies.?Headache d enies. L ow back pain d enies. P sychiatric: Depressed mood d enies. * Medical History: * Surgical History: H ysterectomy 1999bilateral cataract surgery, Dr. Lee, [facility] colonoscopy, Dr. Kendrick Gannon, [facility] 2010hysterectomy, Dr. Sher tonsillectomy 2005total extractions [...] x-cigarette smoker S he was born in [facility]. She worked on the [employer]. She has no history of sick exposures. She has never had a positive TB test. She has been to Nate for 57 years and they have 2 healthy sons. She has no grandchildren. She is [employer]. * Medications: T akingVitamin D 25 MCG (1000 UT) Tablet 1 tablet Orally Once a day Medication List reviewed and reconciled with the patientTaking Vitamin D 25 MCG (1000 UT) Tablet 1 tablet Orally Once a day Medication List reviewed and reconciled with the patient * Allergies: N o Known Drug Allergyno[Allergies Verified] Objective: * Vitals: H t: 64, Wt:167, BMI:28.66, Ht-cm: 162.56, Wt-k.75. * P ast Orders: Lab:Daina Rodriguez. Gosia castro Fast * Collection Date 12/08/2024 07/24/2024 [...] mg/dL) 9.7 (Ref Range: 8.4-10.2 mg/dL) * Lab:Complete Blood Count Aut o Diff [...] 0.0-0.012 X10*3/uL) 0.000 (Ref Range: 0.0-0.012 X10*3/uL) ???Lab:Vitamin B12 (Order Date - 12/08/2024) (Collection Date & Time - 12/08/2024 10:40 AM)?ValueReference Range?Vitamin [id number] - pg/mL * Lab:Lipid Panel * Collection Date 12/08/2024 07/24/2024 [...] >40 mg/dL) 50 (Ref Range: >40 mg/dL) ???Lab:Magnesium (Order Date - 12/08/2024) (Collection Date & Time - 12/08/2024 10:40 AM)?ValueReference Range?Magnesium2.11.6-2.6 - mg/dL Assessment: * Assessment: 1. V itamin B 12 deficiency - E53.8 (Primary) N otes :Her vitamin B12 level of 273 he is in the normal range, but quite low. I have given her a trial of oral vitamin B12 because of the peripheral neuropathy. 2 . E ssential hypertension - I10 N otes :She was given an appointment to come to the office in 6 weeks to measure her blood pressure. 3 . H yperlipidemia - E78.5 N otes :Her lipids have been elevated into a treatable range. She continues to refuse to take a statin medication. We will proceed with a low cholesterol diet. 4 . O verweight - E66.3 N [...] of stress and illness. Plan: * Treatment: 2. E ssential hypertension L AB: CBC w DIFF L AB: Vitamin B12 3. O thers Continue Vitamin D Tablet, 25 MCG (1000 UT), 1 tablet, Orally, Once a day; S tart Cyanocobalamin Tablet, 1000 MCG, 1 tablet, Orally, Once a day, 30 days, 30, Refills 11. * Procedure Codes: 9 8012 SYNCH AUDIO-ONLY EST SF 10 * Preventive Medicine: Counseling: C are goal follow-up plan: Counseling for abnormal BMI given Y es Above Normal BMI Follow-up D ietary management education, guidance, and counseling S moking/Tobacco Use Patient counseled on the dangers of tobacco use and urged to quit. 0 12/29/2024 * Follow Up: m id sept appt (Reason: ov review labs) * Images: * Sign off status: Completed true * Provider: Shane Rosas MD Date: 0 12/29/2024 Generated for Bharathi ng/Gretel/eTransmitting on: 0 03/02/2025 07:24 AM EDT History and Physical Notes * HPI (History of Present Illness) Category Sub-Category Detail Notes Telehealth Location of [facility] rendering services:: {...} [address] [place] [address] [place] [id number] Location of patient:: address listed in demographics for today's visit Patient identification confirmed using:: Name, Telehealth method:: Telephone only. Maru ent not visible to care provider. Consent:: Patient verbally c onsented to treatment, Patient verbally consented to billing insurance company, Patient informed of any privacy concerns related to method of visit Total time spent with patient (mins): 15
--- OUTSIDE RECORDS SUMMARY | 2025-03-02 07:24 | XMS_ITS | Clinical Summary ---
Author Organization [employer] Address [address] [place] [address] [address] [place] [address] Care Team Providers Care Senior Internet Sales Consultant Name Role Phone Unavailable Primary Care Provider [...] Tdap) 02/17/2023 02/17/2013 COVID-19 Vaccine ( season) 2025 04/13/2022, 06/05/2021, 08/30/2020, Additional history exists Influenza Vaccine (#1) 2025 , 05/02/2023, 04/03/2022, Additional history exists HIB Vaccines Aged [...] age to complete this topic Insurance [place] [address] [place] [phone] [facility] MEDICARE SUPPLEMENT
--- OUTSIDE RECORDS SUMMARY | 2025-03-02 07:24 | XMS_ITS | Patient Health Record ---
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 Problem Family history of malignant neoplasm of gastrointestinal tract (288817254) Family history of malignant neoplasm of gastrointestinal tract (V16.0) Active confirmed Problem Screening for malignant neoplasm of colon (467695597) Special screening for malignant neoplasms, colon (V76.51) Active confirmed Plan Of Treatment No Information Insurance Providers Payer Name Payer Address Payer Phone Subscriber Number Group Number Insured Name Patient Relationship to Insured Coverage Start Date Coverage End Date [facility] [address] [place] [phone] [id number] JOSE MATUTE Self - patient is the insured
--- OUTSIDE RECORDS SUMMARY | 2025-03-02 07:25 | XMS_ITS | Patient Health Record ---
Author Organization Kendrick Rosas III, MD Address [address] [place] [address] Care Team Providers Care Deputy Chief Counsel Name Role Phone Kendrick Rosas Primary Care Provider [phone] Allergies Allergen (clinical drug ingredient) Drug/Non Drug Allergy documented on EMR Reaction Allergy Type Onset Date Status No Known Drug Allergy Unknown Drug Allergy Active Results Component Value Reference Range Notes Complete Blood Count Auto Di ff Reviewed date:04/26/2024 07:04:21 PM Interpretation: Performing Lab:[facility], [address] [place] [phone] Notes/Report: White Blood Count 6.8 4.8-10.8 X10*3/uL Red Blood Count 4.77 4.20-5.50 X10*6/uL Hemoglobin 15.0 12.0-16.0 g/dl Hematocrit 43.8 37.0-47.0 % Mean Corpuscular Volume 91.8 80.0-98.0 fL Mean Corpuscular Hemoglobin 31.4 27.0-33.0 pg Mean Corpuscular HGB Conc 34.2 31.0-35.0 g/dl Red Cell Distribution Width 13.3 11.0-16.0 % Platelet Count 221 160-400 X10*3/uL Mean Platelet Volume 10.8 9.4-12.3 fL Neutrophils Percent Auto 67.2 45-73 % Imm Gran Pct Auto 0.4 0.0-0.4 % Lymphocytes Percent Auto 22.2 20-40 % Monocytes Percent Auto 7.0 2-11 % Eosinophils Percent Auto 2.6 0-4 % Basophils Percent Auto 0.6 0-2 % NRBC Pct Auto 0.0 0.0-0.2 /100WBC Neutrophils Absolute Auto 4.6 2.0-8.3 x10*3/u L Imm Gran Abs Auto 0.03 0.00-0.03 X10*3/uL Lymphocytes Absolute Auto 1.5 1.2-4.9 X10*3/u L Monocytes Absolute Auto 0.5 0.1-1.2 X10*3/uL Eosinophils Absolute Auto 0.2 0.0-0.4 X10*3/u L Basophils Absolute Auto 0.0 0.0-0.2 X10*3/uL NRBC Abs Auto 0.000 0.0-0.012 X10*3/uL Comprehensive [place]. Panel Fa st Reviewed date:04/26/2024 07:04:21 PM Interpretation: Performing Lab:[facility], [address] [place] [phone] Notes/Report: Sodium 144 135-145 mmol/L Potassium 4.3 3.3-5.1 mmol/L Chloride 109 96-108 mmol/L Carbon Dioxide 26 22-29 mmol/L Anion Gap 13 12-20 Blood Urea Nitrogen 11 9-16 mg/dL Creatinine 0.83 0.5-1.4 mg/dL Estimated Glomerular Filt Rate > 60 NOTE: For -[place] individuals, multiply the result by 1.210. Chronic Kidney Disease: Estimated GFR < 60 mL/min/1.73m2 Severe Kidney Disease: Estimated GFR < 15 mL/min/1.73m2 Glucose Fasting 107 60-99 mg/dL A fasting glucose from 100-125 mg/dl is considered impaired (pre-diabetes). Calcium 9.7 8.4-10.2 mg/dL Bilirubin Total 1.2 0.0-1.0 mg/dL Aspartate Amino Transferase 19 5-31 U/L Alanine Aminotransferase 15 0-31 U/L Total Protein 6.6 6.5-8.0 g/dL Albumin Level 4.0 3.5-5.0 g/dL Alkaline Phosphatase 69 39-117 U/L Lipid Panel Reviewed date:04/26/2024 07:04:21 PM Interpretation: Performing Lab:[facility], [address] [place] [phone] Notes/Report: Triglycerides 196 <150 mg/dL Desirable Triglyceride: less than 150 mg/dL Borderline High Triglyceride 150-199 mg/dL High Triglyceride: 200-499 mg/dL Very High Triglyceride: greater than or equal to 5OO mg/dL Cholesterol 266 <200 mg/dL Desirable Cholesterol: less than 200 mg/dL Borderline High Cholesterol: 200-239 mg/dL High Cholesterol: greater than 239 mg/dL LDL Cholesterol Calculated 177 <100 mg/dL Desirable LDL: less than 100 mg/dL Near Optimal/Above Optimal LDL: 110-129 mg/dL Borderline High LDL: 130-159 mg/dL High LDL: 160-189 mg/dL Very High LDL: greater than or equal to 190 mg/dL HDL Cholesterol 50 >40 mg/dL Desirable HDL: greater than 40 mg/dL Note: This HDL assay may give artificially low results in patients with liver disease. Vitamin D 25-OH Total Reviewed date:04/26/2024 07:04:21 PM Interpretation: Performing Lab:[facility], [address] [place] [phone] Notes/Report: Vitamin D 25-OH Total 33.2 >30 ng/mL Health Based Reference Values* < 20 ng/mL Deficient 20-30 ng/mL Insufficient > 30 ng/mL Sufficient *Hollie ABDALLA. N Engl J Med. 2007;357:266-280 Care must be taken in interpreting Vitamin D results from different laboratories and methodologies. Published data demonstrated that results from patients undergoing hemodialysis may show a negative bias when tested with various automated 25-OH vitamin D assays when compared to LC-MS/MS. When testing samples from patients whose predominant form of Vitamin D is Vitamin D2, such as patients receiving Vitamin D2 supplementation, results that are subtherapeutic should be confirmed with another method such as LC-MS/MS. Complete Blood Count Auto Di ff Reviewed date:07/26/2024 08:43:16 AM Interpretation: Performing Lab:[facility], [address] [place] [phone] Notes/Report: White Blood Count 6.9 4.8-10.8 X10*3/uL Red Blood Count 4.82 4.20-5.50 X10*6/uL Hemoglobin 14.9 12.0-16.0 g/dl Hematocrit 43.7 37.0-47.0 % Mean Corpuscular Volume 90.7 80.0-98.0 fL Mean Corpuscular Hemoglobin 30.9 27.0-33.0 pg Mean Corpuscular HGB Conc 34.1 31.0-35.0 g/dl Red Cell Distribution Width 13.2 11.0-16.0 % Platelet Count 241 160-400 X10*3/uL Mean Platelet Volume 10.4 9.4-12.3 fL Neutrophils Percent Auto 66.4 45-73 % Imm Gran Pct Auto 0.3 0.0-0.4 % Lymphocytes Percent Auto 21.7 20-40 % Monocytes Percent Auto 8.7 2-11 % Eosinophils Percent Auto 2.3 0-4 % Basophils Percent Auto 0.6 0-2 % NRBC Pct Auto 0.0 0.0-0.2 /100WBC Neutrophils Absolute Auto 4.6 2.0-8.3 x10*3/u L Imm Gran Abs Auto 0.02 0.00-0.03 X10*3/uL Lymphocytes Absolute Auto 1.5 1.2-4.9 X10*3/u L Monocytes Absolute Auto 0.6 0.1-1.2 X10*3/uL Eosinophils Absolute Auto 0.2 0.0-0.4 X10*3/u L Basophils Absolute Auto 0.0 0.0-0.2 X10*3/uL NRBC Abs Auto 0.000 0.0-0.012 X10*3/uL Comprehensive [place]. Panel Fa st Reviewed date:07/26/2024 08:43:16 AM Interpretation: Performing Lab:[facility], [address] [place] [phone] Notes/Report: Sodium 142 135-145 mmol/L Potassium 4.6 3.3-5.1 mmol/L Chloride 110 96-108 mmol/L Carbon Dioxide 27 22-29 mmol/L Anion Gap 10 12-20 Blood Urea Nitrogen 12 9-16 mg/dL Creatinine 0.78 0.5-1.4 mg/dL Estimated Glomerular Filt Rate > 60 Chronic Kidney Disease: Estimated GFR < 60 mL/min/1.73m2 Severe Kidney Disease: Estimated GFR < 15 mL/min/1.73m2 Glucose Fasting 98 60-99 mg/dL Calcium 9.5 8.4-10.2 mg/dL Bilirubin Total 1.2 0.0-1.0 mg/dL Aspartate Amino Transferase 19 5-31 U/L Alanine Aminotransferase 12 0-31 U/L Total Protein 6.9 6.5-8.0 g/dL Albumin Level 4.0 3.5-5.0 g/dL Alkaline Phosphatase 74 39-117 U/L Lipid Panel Reviewed date:07/26/2024 08:43:16 AM Interpretation: Performing Lab:[facility], [address] [place] [phone] Notes/Report: Triglycerides 158 <150 mg/dL Desirable Triglyceride: less than 150 mg/dL Borderline High Triglyceride 150-199 mg/dL High Triglyceride: 200-499 mg/dL Very High Triglyceride: greater than or equal to 5OO mg/dL Cholesterol 250 <200 mg/dL Desirable Cholesterol: less than 200 mg/dL Borderline High Cholesterol: 200-239 mg/dL High Cholesterol: greater than 239 mg/dL LDL Cholesterol Calculated 177 <100 mg/dL Desirable LDL: less than 100 mg/dL Near Optimal/Above Optimal LDL: 110-129 mg/dL Borderline High LDL: 130-159 mg/dL High LDL: 160-189 mg/dL Very High LDL: greater than or equal to 190 mg/dL HDL Cholesterol 42 >40 mg/dL Desirable HDL: greater than 40 mg/dL Note: This HDL assay may give artificially low results in patients with liver disease. Vitamin B12 and Folate Reviewed date:07/26/2024 08:43:16 AM Interpretation: Performing Lab:[facility], [address] [place] [phone] Notes/Report: Vitamin B12 231 200-900 pg/mL NORMAL 200-900 PG/ML INDETERMINATE 160-199 PG/ML DEFICIENT < 160 PG/ML Folate 10.8 > or = 4.0 ng/mL Reference Values: > or = 4.0 ng/mL < 4.0 ng/mL suggests folate deficiency Methotrexate, aminopterin and folinic acid (leucovorin) are chemotherapeutic agents whose molecular structures are similar to folate; therefore, the [employer] folate assay cannot be used for patients using these drugs. Lipid Panel Reviewed date:12/09/2024 01:19:32 PM Interpretation: Performing Lab:[facility], [address] [place] [phone] Notes/Report: Triglycerides 182 <150 mg/dL Desirable Triglyceride: [...] B12 Reviewed date:12/09/2024 01:19:32 PM Interpretation: Performing Lab:[facility], [address] [place] [phone] Notes/Report: Vitamin B12 273 200-900 pg/mL NORMAL 200-900 PG/ML INDETERMINATE 160-199 PG/ML DEFICIENT < 160 PG/ML Complete Blood Count Auto Di ff Reviewed date:12/09/2024 01:19:32 PM Interpretation: Performing Lab:[facility], [address] [place] [phone] Notes/Report: White Blood Count 7.3 4.8-10.8 X10*3/uL Red Blood Count 4.87 4.20-5.50 X10*6/uL Hemoglobin 15.1 12.0-16.0 g/dl Hematocrit 44.1 37.0-47.0 % Mean Corpuscular Volume 90.6 80.0-98.0 fL Mean Corpuscular Hemoglobin 31.0 27.0-33.0 pg Mean Corpuscular HGB Conc 34.2 31.0-35.0 g/dl Red Cell Distribution Width 13.2 11.0-16.0 % Platelet Count 239 160-400 X10*3/uL Mean Platelet Volume 10.8 9.4-12.3 fL Neutrophils Percent Auto 67.8 45-73 % Imm Gran Pct Auto 0.4 0.0-0.4 % Lymphocytes Percent Auto 21.3 20-40 % Monocytes Percent Auto 7.7 2-11 % Eosinophils Percent Auto 2.2 0-4 % Basophils Percent Auto 0.6 0-2 % NRBC Pct Auto 0.0 0.0-0.2 /100WBC Neutrophils Absolute Auto 4.9 2.0-8.3 x10*3/u L Imm Gran Abs Auto 0.03 0.00-0.03 X10*3/uL Lymphocytes Absolute Auto 1.6 1.2-4.9 X10*3/u L Monocytes Absolute Auto 0.6 0.1-1.2 X10*3/uL Eosinophils Absolute Auto 0.2 0.0-0.4 X10*3/u L Basophils Absolute Auto 0.0 0.0-0.2 X10*3/uL NRBC Abs Auto 0.000 0.0-0.012 X10*3/uL Comprehensive [place]. Panel Fa st Reviewed date:12/09/2024 01:19:32 PM Interpretation: Performing Lab:[facility], [address] [place] [phone] Notes/Report: Sodium 143 135-145 mmol/L Potassium 4.5 3.3-5.1 mmol/L Chloride 109 96-108 mmol/L Carbon Dioxide 30 22-29 mmol/L Anion Gap 9 12-20 Blood Urea Nitrogen 10 9-16 mg/dL Creatinine 0.92 0.5-1.4 mg/dL Estimated Glomerular Filt Rate 58 Chronic Kidney Disease: Estimated GFR < 60 mL/min/1.73m2 Severe Kidney Disease: Estimated GFR < 15 mL/min/1.73m2 Glucose Fasting 95 60-99 mg/dL Calcium 9.3 8.4-10.2 mg/dL Bilirubin Total 1.3 0.0-1.0 mg/dL Aspartate Amino Transferase 19 5-31 U/L Alanine Aminotransferase 16 0-31 U/L Total Protein 6.8 6.5-8.0 g/dL Albumin Level 4.3 3.5-5.0 g/dL Alkaline Phosphatase 83 39-117 U/L Magnesium Reviewed date:12/09/2024 01:19:32 PM Interpretation: Performing Lab:[facility], [address] [place] [phone] Notes/Report: Magnesium 2.1 1.6-2.6 mg/dL Intrinsic Factor Antibodies Reviewed date:12/30/2024 01:45:56 PM Interpretation: Performing Lab:[facility], [address], [place] [address] Notes/Report: Intrinsic Factor Antibodies Negative Negative For additional information, please refer to [email or web address]/[email or web address] (This link is being provided for informational/ educational purposes only.) THIS TEST WAS PERFORMED AT: [facility] [address] [phone] MIGUELITO YOUNG MD,PHD Reason For Referral No Information Medications Medication SIG (Take, Route, Frequency, Duration) Notes Start Date End Date Status Vitamin D 25 MCG (1000 UT) 1 tablet Oral ly Once a day 10/03/2022 Active Cyanocobalamin 1000 MCG 1 tablet Orally Once a day for 30 days 12/29/2024 12/24/2025 Active Immunizations Vaccine Route Administration Date Status Comme nts Influenza, quad IM Intramuscular 04/03/2022 Administered FLuzone HD PF Unknown 03/22/2020 Administered PCV13 Unknown 03/10/2018 Administered COVID PFIZER Unknown 06/05/2021 Administered COVID PFIZER Unknown 08/30/2020 Administered COVID PFIZER Unknown 08/09/2020 Administered Social History Tobacco Use: Social History Observation Description Date Details (start date - stop date) Former Smoker NA - NA Sex Assigned At : Social History Observation Description Sex Assigned At Female Tobacco Use/Smoking Question Answer Notes Patient is a former smoker How long has it been since you last smoked? > 10 years Additional Findings: Tobacco Non-User Ex-cigaret te smoker Alcohol Screen Question Answer Notes Did you have a drink contain ing alcohol in the past year? Yes How often did you have a dri nk containing alcohol in the past year? 4 or more times a week (4 points) How many drinks did you have on a typical day when you were drinking in the past year? 1 or 2 drinks (0 point) How often did you have 6 or more drinks on one occasion in the past year? Never (0 point) Points 4 Interpretation Positive Problems Problem Type SNOMED Code ICD Code Onset Dates Problem Status W/U Status Risk Notes Problem 9302632 Former smoker (Z87.891) Active confirmed She is highly motivated not to smoke. She has a plan to prevent relapse in times of stress and illness. Problem Hyperlipidemia (74898493) Hyperlipidemia (E78.5) Active confirmed Her lipids have been elevated into a treatable range. She continues to refuse to take a statin medication. We will proceed with a low cholesterol diet. Problem 685556702 Overweight (E66.3) Active confirmed Her body mass index is stable at 27. We have discussed her diet and nutrition. We have made a pplan to lose weight at a rate of one half of a pound per week through a healthy diet combined with physical activity. Problem Vitamin D deficiency (58635965) Vitamin D deficiency, unspecified (E55.9) Active confirmed She was continued on her vitamin D. The most recent vitamin D level is within normal limits. Problem 793858199 Cataract extraction status, right eye (Z98.41) Active confirmed Problem 761440275 Cataract extraction status, left eye (Z98.42) Active confirmed Problem 95430638 Essential hypertension (I10) Active confirmed She was given an appointment to come to the office in 6 weeks to measure her blood pressure. Problem 036593204 Vitamin B 12 deficiency (E53.8) Active confirmed Her vitamin B12 level of 273 he is in the normal range, but quite low. I have given her a trial of oral vitamin B12 because of the peripheral neuropathy. Problem 40178992 Polyp of colon, unspecified part of colon, unspecified type (K63.5) Active confirmed This was foundd on a previous colonoscopy. She is free of any colonic symptoms today. She denies any bleeding or abdominal pain. Vital Signs Heart Rate 71 /min 12/08/2024 Temperature 97.4 degrees Fahrenheit 12/08/2024 Blood pressure diastolic 79 mm Hg 12/08/2024 Height 64 in 12/29/2024 Blood pressure systolic 138 mm Hg 12/08/2024 Weight 167 lbs 12/29/2024 BMI 28.66 kg/m2 12/29/2024 Encounters Encounter Location Date Provider Diagnosis Kendrick Rosas III, MD [address] [place] [address] [place] [phone] 04/29/2024 Kendrick Rosas Screening mammogram, encounter for Z12.31 ; Essential hypertension I10 ; Hyperlipidemia E78.5 ; Overweight E66.3 ; Former smoker Z87.891 and Vitamin D deficiency, unspecified E55.9 Kendrick Rosas III, MD [address] [place] [address] [place] [address] 07/30/2024 Kendrick Rosas Hyperlipidemia E78.5 ; Essential hypertension I10 ; Vitamin D deficiency, unspecified E55.9 ; Overweight E66.3 and Former smoker Z87.891 Kendrick Rosas III, MD [address] [place] [address] [place] [address] 12/08/2024 Kendrick Rosas Hyperlipidemia E78.5 ; Essential hypertension I10 ; Screening mammogram, encounter for Z12.31 ; Polyp of colon, unspecified part of colon, unspecified type K63.5 ; Vitamin D deficiency, unspecified E55.9 ; Overweight E66.3 and Former smoker Z87.891 Kendrick Rosas III, MD [address] [place] [address] [place] [address] 12/29/2024 Kendrick Rosas Vitamin B 12 deficie ncy E53.8 ; Essential hypertension I10 ; Hyperlipidemia E78.5 ; Overweight E66.3 and Former smoker Z87.891 Kendrick Rosas III, MD [address] [place] [address] [place] [address] 12/09/2024 Kendrick Rosas Vitamin B12 deficien cy E53.8 Assessments Encounter Date Diagnosis (ICD Code) Assessment Notes Treat ment Notes Treatment Clinical Notes 04/29/2024 Essential hypertension (ICD-10 - I10) Her blood pressures currently controlled and no change in her regimen was needed. 04/29/2024 Screening mammogram, encounter for (ICD-10 - Z12.31) A screening mammogram has been ordered. 07/30/2024 Hyperlipidemia (ICD-10 - E78.5) Her total [...] no change in her regimen was needed. 12/08/2024 Hyperlipidemia (ICD-10 - E78.5) Her lipids have been elevated into a treatable range. She continues to refuse to take a statin medication. We will proceed with a low cholesterol diet. 12/08/2024 Essential hypertension (ICD-10 - I10) Her blood pressure is currently stable and no change in her regimen was needed today. 12/29/2024 Essential hypertension (ICD-10 - I10) She was given an appointment to come to the office in 6 weeks to measure her blood pressure. 12/29/2024 Vitamin B 12 deficiency (ICD-10 - E53.8) Her vitamin B12 level of 273 he is in the normal range, but quite low. I have given her a trial of oral vitamin B12 because of the peripheral neuropathy. 12/09/2024 Vitamin B12 deficiency (ICD-10 - E53.8) 04/29/2024 Hyperlipidemia (ICD-10 - E78.5) Her total cholesterol is elevated at 266. The HDL is normal. We discussed diet and nutrition today.She did not want to start on a statin medication. She will, however, consider this. We have reviewed the usual sources of cholesterol in the typical diet. She was counseled about reducing her cholesterol level by lifestyle modification. 07/30/2024 Vitamin D deficiency , unspecified (ICD-10 - E55.9) She was continued on her vitamin D. The most recent vitamin D level is within normal limits. 12/08/2024 Screening mammogram, encounter for (ICD-10 - Z12.31) An annual screening mammogram has been ordered. 12/29/2024 Hyperlipidemia (ICD-10 - E78.5) Her lipids have been elevated into a treatable range. She continues to refuse to take a statin medication. We will proceed with a low cholesterol diet. 04/29/2024 Overweight (ICD-10 - E66.3) Her body mass index is stable at 27. We have discussed her diet and nutrition. We have made a pplan to lose weight at a rate of one half of a pound per week through a healthy diet combined with physical activity. 07/30/2024 Overweight (ICD-10 - E66.3) Her body mass index is stable at 27. We have discussed her diet and nutrition. We have made a pplan to lose weight at a rate of one half of a pound per week through a healthy diet combined with physical activity. 12/08/2024 Polyp of colon, unspecified part of colon, unspecified type (ICD-10 - K63.5) This was foundd on a previous colonoscopy. She is free of any colonic symptoms today. She denies any bleeding or abdominal pain. 12/29/2024 Overweight (ICD-10 - E66.3) Her body mass index is stable at 27. We have discussed her diet and nutrition. We have made a pplan to lose weight at a rate of one half of a pound per week through a healthy diet combined with physical activity. 04/29/2024 Former smoker (ICD-1 0 - Z87.891) She is highly motivated not to smoke. She has a plan to prevent relapse in times of stress and illness. 07/30/2024 Former smoker (ICD-1 0 - Z87.891) She is highly motivated not to smoke. She has a plan to prevent relapse in times of stress and illness. 12/08/2024 Vitamin D deficiency , unspecified (ICD-10 - E55.9) She was continued on her vitamin D. The most recent vitamin D level is within normal limits. 12/29/2024 Former smoker (ICD-1 0 - Z87.891) She is highly motivated not to smoke. She has a plan to prevent relapse in times of stress and illness. 04/29/2024 Vitamin D deficiency , unspecified (ICD-10 - [...] of stress and illness. Plan Of Treatment Pending Test Test Name Order Date PROFILE, FASTING (COMPREHENSIVE METABOLI C) 01/03/2023 PROFILE, FASTING (COMPREHENSIVE METABOLI C) 12/08/2024 PROFILE, FASTING (COMPREHENSIVE METABOLI C) 04/29/2024 PROFILE, FASTING (COMPREHENSIVE METABOLI C) 10/03/2022 MAGNESIUM 12/08/2024 LIPID PANEL 10/03/2022 CBC w DIFF 12/29/2024 CBC w DIFF 01/03/2023 CBC w DIFF 12/08/2024 CBC w DIFF 10/03/2022 URINE CULTURE 01/03/2023 VITAMIN D 25-OH TOTAL 01/03/2023 VITAMIN D 25-OH TOTAL 10/03/2022 CBC WITH AUTO DIFF 04/29/2024 Urinalysis 01/03/2023 Lipid Panel 01/03/2023 Lipid Panel 04/29/2024 Vitamin B12 and Folate 04/29/2024 Vitamin B12 12/29/2024 Folate 12/08/2024 MM tomosynthesis diagnostic BI 4 MM tomosynthesis screening BI 12/08/2024 Next Appt Details Provider Name:Kendrick Rosas, 03/09/2025 10:00:00 AM, [address] [place] [address] JAJA MONGE, [place], [phone], Provider Name:Kendrick Rosas, 04/30/2025 02:15:00 PM, [address] [place] [address] JAJA MONGE, [place] PAT[place], [phone], Insurance Providers Payer Name Payer Address Payer Phone Subscriber Number Group Number Insured Name Patient Relationship to Insured Coverage Start Date Coverage End Date MEDICARE NGS [address] [place] [phone] [id number] Ambar Leonardo Self - patient is the insured [address] [place] [phone] [id number] Ambar Leonardo Self - patient is the insured Medical (General) History Medical History History ICD Code Overweight E66.3 Hyperlipidemia E78.5 Hypertension I10 cataracts colonic polyps former smoker Surgical History Surgery Date(Month/Year) No history full maxillary dental extraction 2022 total extractions of maxilla 2021 tonsillectomy 2005 hysterectomy, Dr. Sher colonoscopy, Dr. Kendrick Gannon, [facility] 2010 bilateral cataract surgery, Dr. Edwin tomlin, [facility] Hysterectomy 2000 Hospitalization History Reason Date(Month/Year) No history
--- OUTSIDE RECORDS SUMMARY | 2025-03-02 07:25 | XMS_ITS | Clinical Summary ---
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 Name Role Phone Unavailable Primary Care Provider Unavailabl e Social History Tobacco Use Types Packs/Day Years Used Date Smoking Tobacco: Never Assessed Comments Unknown Sex and Gender Information Value Date Recorded Sex Assigned at Not on file Legal Sex Female 5:14 AM EDT Gender Identity Not on file Sexual Orientation Not on file Plan of Treatment Health Maintenance Due Date Last Done Comments DTaP/Tdap/Td (1 - Tdap) 1959 Pneumococcal 50+ years (1 of 1 - PCV) 1991 Zoster (Shingrix) (1 of 2) 1991 Bone Density 2006 RSV (1 - 1-dose 75+ series) 2016 COVID-19 Vaccine ( - 2023-2 5 season) 2025 Influenza (#1) 2025 HPV Vaccine (No Doses Required) Completed Hep A Aged Out No longer eligi ble based on patient's age to complete this topic Hep B Aged Out No longer eligi ble based on patient's age to complete this topic Hib Aged Out No longer eligi ble based on patient's age to complete this topic Mammogram/Breast Imaging Discontinued Meningococcal ACWY Aged Out No longer eligible based on patient's age to complete this topic Pap Smear Discontinued Zoster (Zostavax) Discontinued Insurance [facility] FFS INDEMNITY
--- OUTSIDE RECORDS SUMMARY | 2025-03-02 07:25 | XMS_ITS | Clinical Summary ---
Author Organization [facility] Address [address] [facility] [address] [place] [phone] Phone Care Team Providers Care Chiropractic Neurologist Name Role Phone Pcp, Unknown Primary Care Provider Unavailabl e Allergies No known active allergies Medications No known medications Active Problems Problem Noted Date Diagnosed Date Pure hypercholesterolemia 05/04/2019 Hyperlipidemia 03/10/2018 Overweight 03/10/2018 Immunizations Immunization Administration Dates Next Due COVID-19 (Pre-04/15) Pfizer Vaccine, mRNA, PF 08/30/2020,08/09/2020 INFLUENZA, SPLIT VIRUS, TRIV ALENT W/ PRESERVATIVE IM 08/27/2013,04/08/2012 Influenza High-Dose Quadriva lent Preservative Free IM 03/22/2020 Influenza High-Dose Trivalen t Preservative Free IM 05/04/2019,03/10/2018,04/08/2014 Pneumococcal conjugate PCV13 03/10/2018 Pneumococcal conjugate, unsp ecified formulation 03/24/2007 Tdap 02/17/2013 Family History Medical History Relation Comments CV disease Father 2 Cancer Father 2 Cancer Mother 2 Hypertension Mother 2 Relation Status Comments Father 1 Father 2 Mother 1 Mother 2 Social History Tobacco Use Types Packs/Day Years Used Date Smoking Tobacco: Former Cigarettes 1 26 0 02/28/1960 - 02/27/1986 Smokeless Tobacco: Never Alcohol Use Standard Drinks/Week Comments Yes 5 (1 standard drink = 0.6 oz pure alcohol) 1-2 glasses of wine in the evening Education Answer Date Recorded Are you interested in more education? Not on elizabeth e 10/19/2022 Are you concerned about learning? Not on file 10/19/2022 No 10/19/2022 No 10/19/2022 Digital Access Answer Date Recorded No 11/19/2022 No 11/19/2022 Reliable internet access at home? Not on file 11/19/2022 Device with a working camera? Not on file Comments Unknown Sex and Gender Information Value Date Recorded Sex Assigned at Not on file Legal Sex Female 10:12 PM EDT Gender Identity Not on file Sexual Orientation Not on file Last Filed Vital Signs Vital Sign Reading Time Taken Comments Blood Pressure 136/82 05/04/2020 8:55 AM EST Pulse 96 05/04/2020 8:55 AM EST Temperature 36.6 C (97.9 F) 05/04/2019 9:07 AM EST Respiratory Rate - - Oxygen Saturation 96% 05/04/2020 8:55 AM EST Inhaled Oxygen Concentration - - Weight 81.2 kg (179 lb) 05/04/2020 8:55 AM EST Height 163.7 cm (5' 4.45 ) 05/04/2019 9:07 AM ES T Body Mass Index 30.3 05/04/2019 9:07 AM EST Plan of Treatment Health Maintenance Due Date Last Done Comments ZOSTER VACCINES (1 of 2) 1991 RSV VACCINE (1 - 1-dose 75+ series) 2016 DEPRESSION SCREENING 05/04/2020 05/04/2019 Adult Td,Tdap Booster 02/17/2023 02/17/2013 INFLUENZA VACCINE (#1) 2025 2, 03/22/2020, 05/04/2019, Additional history exists COVID-19 VACCINE (3 - season) 2025 08/30/2020, 08/09/2020 PNEUMOCOCCAL VACCINES (50+ years) (2 of 2 - PPSV23) 05/04/2060 03/10/2018 Postponed from 03/10/2019 (Compliant with Maximum Tolerated Therapy) OSTEOPOROSIS SCREENING INITIAL (ONE-TIME) Completed 04/14/2012 HEPATITIS A VACCINES Aged Out No long er eligible based on patient's age to complete this topic HIB VACCINES Aged Out No longer eligi ble based on patient's age to complete this topic MENINGOCOCCAL VACCINES (ACWY) Aged Out No longer eligible based on patient's age to complete this topic MENINGOCOCCAL VACCINES (B) Aged Out N o longer eligible based on patient's age to complete this topic Medical Devices Not on file Procedures Procedure Name Priority Date/Time Associated Diagnosis Comments OUTSIDE BONE DENSITY SCREENING Routine 04/14/2012 from Last 3 Months or Most Recently Relevant to Health Maintenance Results * OUTSIDE BONE DENSITY SCREENING (04/14/2012) BONE DENSITY SCREENING - EXTERNAL normal us Historical Provider HEALTH MAINTENANCE Final Result from Last 3 Months or Most Recently Relevant to Health Maintenance Insurance MEDICARE PART A & B Member Subscriber Plan / Payer (Ef fective 2006-Present) Name:Ambar Leonardo Member ID:[id number] Relation to Subscriber:Self Name:Ambar Leonardo Subscriber ID:[id number] Payer ID:[id number] Group ID:Not on file Type:Medicare Address: [employer] [address] [address] [facility] MEDICARE SUPPLEMENT MEDICARE PART A & B [facility] MEDICARE SUPPLEMENT MEDICARE PART A & B [facility] MEDICARE SUPPLEMENT MEDICARE PART A & B MEDICARE SUPPLEMENT MEDICARE PART A & B MEDICARE SUPPLEMENT MEDICARE PART A & B MEDICARE SUPPLEMENT MEDICARE PART A & B MEDICARE SUPPLEMENT MEDICARE PART A & B Member Subscriber Plan / Payer (Ef fective 2006-Present) Name:Ambar Leonardo Member ID:[id number] Relation to Subscriber:Self Name:Ambar Leonardo Subscriber ID:[id number] Payer ID:[id number] Group ID:Not on file Type:Medicare Address: [employer] [address] MEDICARE SUPPLEMENT MEDICARE PART A & B MEDICARE SUPPLEMENT Care Teams Chiropractic Neurologist Relationship Specialty Start Date End Date Pcp, Unknown PCP - General 09/04/22 Additional Source Comments The information contained in this document represents components of the legal health record. It is not the complete legal health record.[facility]
[2025-03-02 07:43] LABS: MANUAL DIFF FLAG NO
[2025-03-02 08:49] LABS: Hematocrit 44.6 % (37.0-47.0); Hemoglobin 14.9 g/dl (12.0-16.0); Imm Gran Abs Auto 0.01 X10*3/uL (0.00-0.03); Imm Gran Pct Auto 0.2 % (0.0-0.4); Lymphocytes Absolute Auto 1.3 X10*3/uL (1.2-4.9); Mean Corpuscular HGB Conc 33.4 g/dl (31.0-35.0); Mean Corpuscular Hemoglobin 30.6 pg (27.0-33.0); Mean Corpuscular Volume 91.6 fL (80.0-98.0); NRBC Abs Auto 0.000 X10*3/uL (0.0-0.012); NRBC Pct Auto 0.0 /100WBC (0.0-0.2); Platelet Count 213 X10*3/uL (160-400); Red Blood Count 4.87 X10*6/uL (4.20-5.50); White Blood Count 5.1 X10*3/uL (4.8-10.8)
[2025-03-02 09:50] LABS: Vitamin B12 396 pg/mL (200-900)
== END 2025-03-02 07:22 | disposition home or self-care (01) ==
LOC: HO.LAB 07:21
PROVIDERS: PCP Internal Medicine Medical Oncology; Visit Provider Internal Medicine Medical Oncology
DX: E53.8 Deficiency of other specified B group vitamins (principal); I10 Essential (primary) hypertension
CPT/HCPCS: 36415; 82607; 85025

== ENCOUNTER 2025-04-22 08:07 | Outpatient (REF) | payer MEDICARE, OTHER, SELFPAY ==
[2025-04-22 08:18] LABS: MANUAL DIFF FLAG NO
--- OUTSIDE RECORDS SUMMARY | 2025-04-22 08:32 | XMS_ITS | Clinical Summary ---
Author Organization [facility] Address [address] [facility] [address] [place] [address] Phone Care Team Providers Care Colorist Name Role Phone Pcp, Unknown Primary Care [...] Payer (Ef fective 2006-Present) Name:Ambar Leonardo Member ID:[id number] Relation to Subscriber:Self Name:Ambar Leonardo Subscriber ID:[id number] Payer ID:[id number] Group ID:Not on file Type:Medicare Address: [employer] [address] [phone] [facility] MEDICARE SUPPLEMENT MEDICARE PART A & B [facility] MEDICARE SUPPLEMENT MEDICARE PART A & B [facility] MEDICARE SUPPLEMENT MEDICARE PART A & B MEDICARE SUPPLEMENT MEDICARE PART A & B MEDICARE SUPPLEMENT MEDICARE PART A & B MEDICARE SUPPLEMENT MEDICARE PART A & B MEDICARE SUPPLEMENT MEDICARE PART A & B Member Subscriber Plan / Payer (Ef fective 2006-Present) Name:Ambar Leonardo Member ID:[id number] Relation to Subscriber:Self Name:Ambar Leonardo Subscriber ID:[id number] Payer ID:[id number] Group ID:Not on file Type:Medicare Address: [employer] [address] MEDICARE SUPPLEMENT MEDICARE PART A & B MEDICARE SUPPLEMENT Care Teams Colorist Relationship Specialty Start Date End Date Pcp, Unknown PCP - General 09/04/22 Additional Source Comments The information contained in this document represents components of the legal health record. It is not the complete legal health record.[facility]
--- OUTSIDE RECORDS SUMMARY | 2025-04-22 08:32 | XMS_ITS | Clinical Summary ---
Author Organization [facility] Address [address] [place] [address] Care Team Providers Care Culture Manager Name Role Phone Unavailable Primary Care Provider [...] 75+ series) 2016 COVID-19 Vaccine ( - 2024-2 6 season) 2025 Influenza (#1) 2025 HPV Vaccine [...] Pap Smear Discontinued Zoster (Zostavax) Discontinued Insurance [facility] FFS INDEMNITY
--- OUTSIDE RECORDS SUMMARY | 2025-04-22 08:32 | XMS_ITS | Clinical Summary ---
Author Organization [employer] Address [address] [place] [address] [address] [place] [address] Care Team Providers Care Visual Merchandising Associate Name Role Phone Unavailable Primary Care Provider [...] age to complete this topic Insurance MEDIC[place] [address] [place] [phone] [facility] MEDICARE SUPPLEMENT
[2025-04-22 08:44] LABS: Hematocrit 46.3 % (37.0-47.0); Hemoglobin 15.4 g/dl (12.0-16.0); Imm Gran Abs Auto 0.03 X10*3/uL (0.00-0.03); Imm Gran Pct Auto 0.4 % (0.0-0.4); Lymphocytes Absolute Auto 1.8 X10*3/uL (1.2-4.9); Mean Corpuscular HGB Conc 33.3 g/dl (31.0-35.0); Mean Corpuscular Hemoglobin 30.9 pg (27.0-33.0); Mean Corpuscular Volume 92.8 fL (80.0-98.0); NRBC Abs Auto 0.000 X10*3/uL (0.0-0.012); NRBC Pct Auto 0.0 /100WBC (0.0-0.2); Platelet Count 237 X10*3/uL (160-400); Red Blood Count 4.99 X10*6/uL (4.20-5.50); White Blood Count 6.8 X10*3/uL (4.8-10.8)
[2025-04-22 08:51] LABS: Alanine Aminotransferase 13 U/L (0-31); Albumin Level 4.3 g/dL (3.5-5.0); Alkaline Phosphatase 76 U/L (39-117); Anion Gap 12 (12-20); Aspartate Amino Transferase 18 U/L (5-31); Blood Urea Nitrogen 14 mg/dL (9-16); Calcium 9.3 mg/dL (8.4-10.2); Carbon Dioxide 28 mmol/L (22-29); Chloride 110 mmol/L (96-108); Cholesterol 256 mg/dL (<200); Estimated Glomerular Filt Rate 57; HDL Cholesterol 46 mg/dL (>40); Potassium 4.6 mmol/L (3.3-5.1); Sodium 145 mmol/L (135-145); Total Protein 6.9 g/dL (6.5-8.0); Triglycerides 190 mg/dL (<150)
[2025-04-22 09:12] LABS: Vitamin B12 458 pg/mL (200-900)
== END 2025-04-22 08:08 | disposition home or self-care (01) ==
LOC: HO.LAB 08:07
PROVIDERS: Visit Provider Internal Medicine Medical Oncology
DX: I10 Essential (primary) hypertension (principal); E78.5 Hyperlipidemia, unspecified; E53.8 Deficiency of other specified B group vitamins
CPT/HCPCS: 36415; 80053; 80061; 82607; 85025

== ENCOUNTER 2025-05-25 08:35 | Outpatient (REF) | payer MEDICARE, OTHER, SELFPAY ==
--- NOTE | ~2025-05-25 | MM_ITS ---
EXAMINATION: MM SCREENING DIGITAL BREAST TOMOSYNTHESIS, BILATERAL CLINICAL INFORMATION: Screening. Asymptomatic. COMPARISON: Mammography: Comparison is made with available priors TECHNIQUE: Digital breast mammography with tomosynthesis is performed in both the craniocaudal and mediolateral oblique views along with computer-aided detection (CAD). FINDINGS: The breasts are heterogeneously dense, which may obscure small masses. There are no significant masses, abnormal calcifications, or other abnormalities. MM/MM tomosynthesis screening BI IMPRESSION: No mammographic evidence of malignancy. ASSESSMENT: BI-RADS Category 1: Negative RECOMMENDATION: Routine annual mammography screening. 1 year F/U This examination should not preclude the clinical evaluation of a suspicious palpable abnormality. This patient's information was entered into a reminder system with a target due date for their next mammogram. Electronically signed by: Blanca Hong DO 05/28/2025 02:22 PM NOELLE
--- OUTSIDE RECORDS SUMMARY | 2025-05-25 08:40 | XMS_ITS | Clinical Summary ---
Author Organization [facility] Address [address] [place] [address] Care Team Providers Care Candle Wrapper Name Role Phone Unavailable Primary Care Provider [...] Pap Smear Discontinued Zoster (Zostavax) Discontinued Insurance [facility] FFS INDEMNITY
--- OUTSIDE RECORDS SUMMARY | 2025-05-25 08:40 | XMS_ITS | Clinical Summary ---
Author Organization [employer] Address [address] [place] [address] [address] [place] [address] Care Team Providers Care Saw Feeder Name Role Phone Unavailable Primary Care Provider [...] Vaccine: 50+ Years (2 of 2 - PCV20 or PCV21) 03/10/2019 03/10/2018, 03/24/2007 DTaP/Tdap/Td Vaccines (2 - [...] age to complete this topic Insurance [place]IC[place] [address] [place] [id number] [facility] MEDICARE SUPPLEMENT
--- OUTSIDE RECORDS SUMMARY | 2025-05-25 08:40 | XMS_ITS | Clinical Summary ---
Author Organization [facility] Address [address] [facility] [address] [place] [address] Phone Care Team Providers Care Senior Clinical Data Coordinator Name Role Phone Pcp, Unknown Primary Care [...] VACCINES (50+ years) (2 of 2 - PCV20 or PCV21) 05/04/2060 03/10/2018 Postponed from 03/10/2019 (Compliant with [...] Maintenance Insurance MEDICARE PART A & B [facility] MEDICARE SUPPLEMENT MEDICARE PART A & B [facility] MEDICARE SUPPLEMENT MEDICARE PART A & B MEDICARE SUPPLEMENT MEDICARE PART A & B MEDICARE SUPPLEMENT MEDICARE PART A & B MEDICARE SUPPLEMENT MEDICARE PART A & B MEDICARE SUPPLEMENT MEDICARE PART A & B MEDICARE SUPPLEMENT MEDICARE PART A & B Member Subscriber Plan / Payer (Ef fective 2006-Present) Name:Ambar Leonardo Member ID:[id number] Relation to Subscriber:Self Name:Ambar Leonardo Subscriber ID:[id number] Payer ID:[id number] Group ID:Not on file Type:Medicare Address: [employer] [address] MEDICARE SUPPLEMENT MEDICARE PART A & B MEDICARE SUPPLEMENT Care Teams Senior Clinical Data Coordinator Relationship Specialty Start Date End Date Pcp, Unknown PCP - General 09/04/22 Additional Source Comments The information contained in this document represents components of the legal health record. It is not the complete legal health record.[facility]
== END 2025-05-25 08:36 | disposition home or self-care (01) ==
LOC: HO.MAMMO 08:35
PROVIDERS: PCP Internal Medicine Medical Oncology; Visit Provider Internal Medicine Medical Oncology
DX: Z12.31 Encounter for screening mammogram for malignant neoplasm of breast (principal)
CPT/HCPCS: 77063; 77067

== ENCOUNTER → 2025-05-25 08:45 | Outpatient (BNV) | payer MEDICARE, OTHER, SELFPAY | PROVIDERS: PCP Internal Medicine Medical Oncology; Visit Provider Internal Medicine | DX: Z12.31 Encounter for screening mammogram for malignant neoplasm of breast (principal) | CPT/HCPCS: 77063; 77067 ==